=== PATIENT | female | born 1935 | race Caucasian/White ===

== ENCOUNTER 2022-07-05 23:13 | Inpatient (IN) | payer MEDICARE, BC, SELFPAY ==
[2022-07-05] VITALS (8 sets, daily range): BP systolic 148–158; BP diastolic 78–81; PULSE 72–75; RESP 13–22; TEMP 36.6; O2SAT 94–100
--- NOTE | ~2022-07-05 | XR_ITS ---
EXAMINATION: XR chest 1V portable DATE: 07/06/2022 00:04 INDICATION: Fall. TECHNIQUE: A single frontal view of the chest was obtained on 2 radiographs. COMPARISON: Chest 2 views 06/22/2015 FINDINGS: There are mild airspace opacities in right mid and lower lung zones. No pleural effusion or pneumothorax. The heart size is normal. IMPRESSION: 1. Mild airspace opacities in right mid and lower lung zones, consistent with atelectasis/scarring ve rsus pneumonia. Reviewed, dictated and finalized at location A. IMPRESSION: 1. Mild airspace opacities in right mid and lower lung zones, consistent with a telectasis/scarring versus pneumonia.
--- NOTE | ~2022-07-05 | XR_ITS ---
EXAMINATION: XR surgery orthopedic DATE: 07/06/2022 14:18 INDICATION: Right hip intertrochanteric nailing TECHNIQUE: 4 fluoroscopic images of the right femur were obtained during procedure performed by Dr. Igor hernandez. Radiologist was not present for the imaging or procedure. The amount of fluoroscopy time used during this procedure was 1.3 minutes. COMPARISON: 07/17/2022 FINDINGS: Interval antegrade intramedullary dominique and interlocking femoral head neck screw fixation of a previous noted intratrochanteric fracture of the proximal right femur. No new fractures identified. Alignment appears near-anatomic on the provided lateral projection of the fracture. IMPRESSION: 1. Fluoroscopy utilized during open reduction and internal fixation of a comminuted intratrochanteric fracture of the proximal right femur. See procedure note for further detail. Reviewed, dictated and finalized at location A. IMPRESSION: 1. Fluoroscopy utilized during open reduction and internal fixation of a commin uted intratrochanteric fracture of the proximal right femur. See procedure note for further detail.
--- NOTE | ~2022-07-05 | XR_ITS ---
EXAMINATION: XR hip RT 2V w AP pelvis DATE: 07/06/2022 00:04 INDICATION: Pelvis injury. TECHNIQUE: An anteroposterior view of the pelvis on 2 radiographs and 2 views of right hip were obtai nikhil. COMPARISON: Radiographs 08/17/2015 FINDINGS: There is a total left hip arthroplasty in near-anatomic alignment. There is lumbar dextrosc oliosis and severe spondylosis. There is a fracture of lesser trochanter of proximal right femur. The re is severe right hip osteoarthritis. IMPRESSION: 1. Age indeterminant fracture of lesser trochanter of proximal right femur. 2. Severe right hip osteoarthritis. 3. Total left hip arthroplasty in near-anatomic alignment. Reviewed, dictated and finalized at location A.
--- NOTE | 2022-07-05 23:24 | ECG_ITS ---
Measurements Intervals [place] Rate: 70 P: 93 MD: 165 QRS: -37 QRSD: 90 T: 82 QT: 408 QTc: 443 Interpretive Statements SINUS RHYTHM LEFT AXIS DEVIATION BASELINE ARTIFACT- I, II, III, AVR, AVL BORDERLINE ECG NO PREVIOUS ECG AVAILABLE FOR COMPARISON Electronically Signed On 07-06-2022 7:00:37 CDT by Poli Bobby D.O.
[2022-07-05] MEDS: MORPHINE SULFATE (*CRX) 4 MG/ML INJ IV PUSH (23:30)
[2022-07-05 23:44] LABS: Basophils Percent Auto 0.2 % (0.2-1.2); Eosinophils Percent Auto 0.2 % (0-4.4); Hematocrit 33.5 % (37.0-47.0); Hemoglobin 10.7 g/dL (12.0-15.0); Immature Granulocyte Absolute 0.05 K/mm3 (0.00-0.031); Immature Granulocyte Percent A 0.4 % (0-0.5); Lymphocytes Absolute Auto 1.11 K/mm3 (0.9-3.2); Lymphocytes Percent Auto 9.1 % (18.3-44.2); Mean Corpuscular HGB Conc 31.9 g/dl (32-36); Mean Corpuscular Hemoglobin 29.2 pg (26-34); Mean Corpuscular Volume 91.5 fl (80-100); Mean Platelet Volume 9.2 fl (7.4-10.4); Monocytes Absolute Auto 0.6 K/mm3 (0.1-0.6); Monocytes Percent Auto 5.2 % (2.6-8.5); Neutrophils Absolute Auto 10.4 K/mm3 (1.3-6.7); Neutrophils Percent Auto 84.9 % (45.5-73.1); Platelet Count Result 276 k/mm3 (150-375); Red Blood Count 3.66 M/mm3 (4.2-5.4); Red Cell Distribution Width 13.7 % (11.5-14.5); White Blood Count 12.2 K/mm3 (4.5-10.0)
[2022-07-06] VITALS (34 sets, daily range): BP systolic 106–157; BP diastolic 47–91; PULSE 58–102; RESP 12–21; TEMP 36.1–37.3; O2SAT 93–100; BMI 18.0
[2022-07-06 00:03] LABS: Anion Gap 10 mmol/L (8-16); Blood Urea Nitrogen 17 mg/dL (7-17); Calcium 8.9 mg/dL (8.4-10.2); Carbon Dioxide 24 mmol/L (22-30); Chloride 105 mmol/L (98-107); Estimated CRCL calculation 31 ml/min; Estimated Glomerular Filt Rate 59; Glucose 117 mg/dL (65-110); Potassium 3.7 mmol/L (3.4-5.0); Sodium 139 mmol/L (137-145)
--- NOTE | 2022-07-06 00:09 | ED.LOWEXIN ---
HPI - Extremity Injury (Lower) General Chief Complaint: Extremity Injury, Lower Stated Complaint: fall, RLE PAIN Time Seen by Provider: 07/05/22 23:21 History of Present Illness HPI Narrative: Patient is an 86-year-old female who presents ER status post fall. Patient reports she got up from the couch answer phone call when she fell landing on right side. Sudden onset pain in the hip. Unable to stand up. Obvious deformity on exam. Denies numbness or tingling. Denies any additional injury. Patient does have some mild dementia that family reports undiagnosed. Related Data Home Medications Medication Instructions Recorded Confirmed No Home Medications 07/06/22 07/06/22 Allergies Allergy/AdvReac Type Severity Reaction Status Date / Time No Known Allergies Allergy Verified 07/05/22 23:20 Review of Systems Review of Systems: All systems reviewed & are unremarkable except as noted in HPI and below Constitutional: Constitutional: Denies chills and Denies fever(s) Respiratory: Respiratory: Denies cough and Denies dyspnea Gastrointestinal: Gastrointestinal: Denies abdominal pain, Denies nausea and Denies vomiting Musculoskeletal: Musculoskeletal: Denies back pain, Reports arthralgias and Denies joint swelling Neurologic: Denies syncope, Denies headache(s), Denies numbness and Denies weakness PMFSH Past Medical History Medical History (Updated 07/06/22 @ 02:50 by Zulema Padilla MD) Healthy female adult Surgical History Surgical History (Updated 07/06/22 @ 00:10 by Cornelio Hendrix MD) History of appendectomy History of left hip replacement Family History Family History (Updated 07/06/22 @ 03:02 by Ilsa Silvestre RN) Other Unknown family medical history Social History Social History (Updated 07/06/22 @ 00:11 by Cornelio Hendrix MD) Smoking status: Never smoker Alcohol intake: never Substance use: never Spiritual care concerns: No Exam Narrative: GENERAL: Well-appearing, well-nourished, and in no acute distress. HEAD: Normocephalic, atraumatic. EYES: PERRL and EOMI. ENT: Mucous membranes moist. CHEST: Clear to auscultation. No respiratory distress. EXTREMITIES: Right lower extremity with shortening and external rotation. Tender at the right hip. SKIN: Warm, dry, no rash. NEURO: Alert and oriented to self/place/situation. PSYCH: Normal mood and affect. Course Course Emergency Course: Orthopedic surgery consulted. Admit to hospitalist service. Urinary catheter ordered for comfort due to immobility and fracture. Patient will go to the OR today. Vital Signs Vital signs: Vital Signs Temperature 97.9 F 07/05/22 23:08 Pulse Rate 75 07/05/22 23:08 Respiratory Rate 13 07/05/22 23:08 Blood Pressure 158/78 H 07/05/22 23:08 Pulse Oximetry 97 07/05/22 23:08 Oxygen Delivery Room Air 07/05/22 23:08 Temperature 98.7 F 07/06/22 03:47 Pulse Rate 69 07/06/22 03:47 Respiratory Rate 17 07/06/22 03:47 Blood Pressure 116/77 07/06/22 03:47 Pulse Oximetry 99 07/06/22 03:47 Oxygen Delivery Room Air 07/06/22 02:30 MDM - Extremity Injury (Lower) Lab Data Result diagrams: 07/05/22 23:33 07/05/22 23:33 Labs: Lab Results 07/05/22 07/05/22 07/05/22 Range/Units 23:33 23:33 23:33 WBC 12.2 H (4.5-10.0) K/mm3 RBC 3.66 L (4.2-5.4) M/mm3 Hgb 10.7 L (12.0-15.0) g/dL Hct 33.5 L (37.0-47.0) % MCV 91.5 (80-100) fl MCH 29.2 (26-34) pg MCHC 31.9 L (32-36) g/dl RDW 13.7 (11.5-14.5) % Plt Count 276 (150-375) k/mm3 MPV 9.2 (7.4-10.4) fl Immature Gran % (Auto) 0.4 (0-0.5) % Neut % (Auto) 84.9 H (45.5-73.1) % Lymph % (Auto) 9.1 L (18.3-44.2) % [place] % (Auto) 5.2 (2.6-8.5) % Eos % (Auto) 0.2 (0-4.4) % Baso % (Auto) 0.2 (0.2-1.2) % Lymph # (Auto) 1.11 (0.9-3.2) K/mm3 [place] # (Auto) 0.6 (0.1-0.6) K/mm3 Eos # (Auto) 0.0
[2022-07-06 00:12] LABS: INR 1.1; Prothrombin Time 13.5 Seconds (11.1-14.7)
[2022-07-06 00:13] LABS: Partial Thromboplastin Time 27.9 SECONDS (22.3-36.8)
--- NOTE | 2022-07-06 00:52 | PM.IMHP ---
H&P: HPI History of Present Illness Date/Time: 07/06/22 00:52 Chief Complaint: Fall Narrative: This is an 86-year-old female with known significant past medical history. patient was brought to the emergency room after she had a fall at home while trying to reach her phone denies any loss of consciousness, it was unwitnessed fall, patient lay on the floor for approximately 2 hours until she was able to get help she was having pain upon trying to get up and bear weight on her right leg. she has been in his usual state of health up until this event. Patient states that only hurts when trying to move the leg. Patient has been admitted for further evaluation management and treatment. Preliminary workup was significant for x-ray of pelvis with right intertrochanteric fracture. Review of Systems Review of Systems: fall, pain on the right leg upon bearing weight on it or moving it Constitutional: Constitutional: Denies chills, Denies fever(s), Denies malaise and Denies weakness Eyes: Eyes: Denies change in vision ENT: Denies dysphagia, Denies vertigo, Denies dizziness, Denies odynophagia and Denies disequilibrium Cardiovascular: Cardiovascular: Denies chest pain, Denies syncope, Denies irregular heart rhythm, Denies lightheadedness and Denies palpitations Respiratory: Respiratory: Denies chest congestion, Denies cough, Denies excessive phlegm production, Denies pain on inspiration and Denies dyspnea Gastrointestinal: Gastrointestinal: Denies abdominal pain, Denies dyspepsia, Denies heartburn, Denies diarrhea, Denies nausea and Denies vomiting Genitourinary: Genitourinary: Denies dysuria Musculoskeletal: Musculoskeletal: Reports arthralgias Comments: right leg pain upon bearing weight and trying to move it Integumentary/Breasts: Skin/Breast: Denies rash Neurologic: Denies vertigo, Denies dizziness, Denies focal weakness and Denies Sensory deficit (Neuro) Psychiatric: Psychiatric: Reports no additional psychiatric complaints and Reports as per HPI Endocrine: Endocrine: Denies cold intolerance, Denies fatigue, Denies flushing, Denies heat intolerance, Denies polyphagia, Denies polydipsia and Denies palpitations Hematologic/Lymphatic: Hematologic/Lymphatic: Reports no additional hematologic/lymphatic complaints and Reports as per HPI Allergic/Immunologic: Allergic/Immunologic: Reports no additional allergic/immunologic complaints and Reports as per HPI PMFSH Past Medical History Medical History (Updated 07/06/22 @ 02:50 by Zulema Padilla MD) Healthy female adult Surgical History Surgical History (Updated 07/06/22 @ 00:10 by Cornelio Hendrix MD) History of appendectomy History of left hip replacement Social History Social History (Updated 07/06/22 @ 00:11 by Cornelio Hendrix MD) Smoking status: Never smoker Alcohol intake: never Substance use: never Spiritual care concerns: No Meds Home Medications and Allergies Home Medications Medication Instructions Recorded Confirmed Type No Home Medications 07/06/22 07/06/22 History Allergies Allergy/AdvReac Type Severity Reaction Status Date / Time No Known Allergies Allergy Verified 07/05/22 23:20 Vital Signs Vital Signs - 24 hr 07/05/22 23:08 Temperature 97.9 F Pulse Rate 75 Respiratory Rate 13 Blood Pressure 158/78 H Pulse Oximetry 97 Oxygen Delivery Room Air Exam Narrative: patient is laying in bed Const: General: comfortable, no acute distress, well developed, alert and awake Nutritional Appearance: thin Orientation/consciousness: patient oriented x3 Limitations: physical limitations HENMT: Head: normal to inspection, normocephalic and atraumatic Ears: hearing grossly normal bilaterally Face and sinus: normal facial exam Eyes: General: appearance normal, both eyes and all related structures Pupils: Equal, round and reactive pupils present EOM: EOMs intact bilaterally Neck: Neck: full ROM, no lymphadeno
--- NOTE | 2022-07-06 01:50 | PC.NURSE ---
DURING ADMISSION I ASKED PT ABOUT HOME MEDICATIONS SHE STATED SHE TAKES NO MEDICATIONS AT ALL.
--- NOTE | 2022-07-06 01:51 | ADMGEN ---
This patient, Leydi Corbin, was admitted to Medical Room 260-. Patient/family oriented to hospital policies and general routines including ID bracelet, bed and alarms, visiting hours, pain management, procedures, bathroom and other care routines, personal items, smoking policy, room service/diet, and visiting hours. Information on how to activate the Rapid Response Team has been discussed. Patient/Family are encouraged to report perceived risks to care and to ask questions if they do not understand what they are told or what they should do.
[2022-07-06 07:44] LABS: Hemoglobin 9.6 g/dL (12.0-15.0); Mean Corpuscular Hemoglobin 29.3 pg (26-34); Mean Corpuscular Volume 91.5 fl (80-100); Mean Platelet Volume 8.6 fl (7.4-10.4); Platelet Count Result 221 k/mm3 (150-375); Red Blood Count 3.28 M/mm3 (4.2-5.4); Red Cell Distribution Width 13.6 % (11.5-14.5); White Blood Count 9.6 K/mm3 (4.5-10.0)
--- NOTE | 2022-07-06 08:22 | PM.CNOR ---
Assessment and Plan Assessment and plan (1) Intertrochanteric fracture of right hip: Code(s): S72.141A - Displaced intertrochanteric fracture of right femur, initial encounter for closed fracture Status: Acute Assessment and Plan: This patient is an 86-year-old female who presented to the emergency room late last evening after falling at home. She lives by herself. Her daughter Connie lives in the area. She provided the most history. Patient is active in the community and goes to budd[employer] manages her house makes her meals but she has become very forgetful. She could not remember when she had her left hip replacement done. Infection could not remember where she had felt pain right hip when she presented unable to get up off floor after her fall. She does report that she has been having a lot of problems with balance for the last few years. She denies any history of pain in her right hip prior to her fall last night. On examination today she is 50.6 kg. She states she has lost a lot of weight since her 4 years ago. Her daughter tells me that she has been told that she should take calcium tablet daily but patient has stopped taking that on her own. She is pleasant and in no acute distress as long she is not moving she denies any pain. She complains of hip proximal thigh pain with slight movement of the right leg which is a little bit shortened and externally rotated. She denies any other areas of pain does not feel she has had any other injury. She had 2+ dorsalis pedis 1+ posterior tibial artery pulses and denied numbness or tingling in her toes she had no lower extremity edema wiggles her toes and ankle without difficulty on the right. x-rays of the right hip two views and AP pelvis were obtained in the emergency room which demonstrate a total hip replacement on the left and on the right there is an intertrochanteric hip fracture with varus displacement and a separate displaced lesser trochanter fragment. There is associated rather severe osteoarthritis in the right hip but again the patient was asymptomatic prior to her fall. Laboratory studies showed that her hemoglobin was only 10.7 at admission indicating that she has chronic moderate anemia. This morning her hemoglobin is already down to 9.6. Her white count this morning is normal at 9.5 and platelets [id number]. Her vitamin-D is low 25.7 we will supplement this as well as initiate calcium orally. Her creatinine is 0.9 GFR normal at 59. Because of her advanced age low body mass her creatinine clearance is only 31. Her past medical history has been uneventful. Her daughter tells me that this is her 2nd time in the hospital the 1st time with her hip replacement approximately [address] Cedeno. I have discussed with her that the patient may and likely will have significant delirium for several days after her fracture repair because of her advanced age and memory loss currently. I have discussed with Patient options of treatment which include repairing this fracture and treating it nonsurgically. I have explained that there is risk of mortality which actually is higher at all points in time with nonsurgical treatment then with surgical treatment because of the morbidity of prolonged bed rest and pain with non operative treatment. Patient would like to regain as much independence as possible. She would like to proceed with surgery and we have scheduled her surgery for 10 26 today. I spoke to her daughter Connie on the phone at length. Connie is patient's [id number]. I discussed risks of surgery with her in detail including the risk of infection blood clots nonunion and the possibility she may have ongoing symptoms associated with the arthritis that she has in her hip joint. I do not feel she would be a good candidate for head and neck resection type total hip arthroplasty which could be considered which would address the osteoarthriti
[2022-07-06 08:26] LABS: Vitamin D 25 Hydroxy 25.7 ng/mL
[2022-07-06 08:40] LABS: Appearance Urine Clear (Clear); Bilirubin Urine Negative (Negative); Blood Urine 2+ (Negative); Color Urine Yellow (Yellow); Glucose Urine UA Negative (Negative); Ketones Urine Negative (Negative); Leukocyte Esterase Ur Negative LEU/UL (Negative); Nitrate Urine Negative (Negative); Protein Urine Trace mg/dL (Negative); Specific Grav Ur 1.025 (1.001-1.035); Urobilinogen Urine 0.2 mg/dL (<2.0)
[2022-07-06 08:51] LABS: Mucus Urine Rare /lpf; RBC Urine >75 /hpf (0-2); Squamous Epithelial Cell Urine Rare /hpf (Few)
[2022-07-06 08:55] LABS: Add Urine Microscopic? YES
--- NOTE | 2022-07-06 09:15 | PC.NURSE ---
Report called to [facility] preop.
--- NOTE | 2022-07-06 09:46 | PM.IMPN ---
Progress Note: A&P Assessment and Plan (1) Fracture of hip: Code(s): S72.009A - Fracture of unspecified part of neck of unspecified femur, initial encounter for closed fracture Status: Acute Assessment and Plan: bed rest ortho consult plan for intramedullary nail today (2) Fall: Code(s): W19.XXXA - Unspecified fall, initial encounter Status: Acute Assessment and Plan: fall precautions Plan systolic murmur mild not prohibitive for surgery. May work this up as an outpatient basis Abnormal UA not indicative of infection. Likely traumatic Teresa placement Abnormal x-ray with mild airspace opacity in the right mid and lower lung zones. This is likely atelectasis she denies any pulmonary symptoms clinically. Add incentive spirometry Subjective Date/time seen: 07/06/22 09:46 Interval history: HPI:This is an 86-year-old female with No known significant past medical history. patient was brought to the emergency room after she had a fall at home while trying to reach her phone denies any loss of consciousness, it was unwitnessed fall, patient lay on the floor for approximately 2 hours until she was able to get help she was having pain upon trying to get up and bear weight on her right leg. she has been in his usual state of health up until this? event.? Patient states that only hurts when trying to move the leg.? Patient has been admitted for further evaluation management and treatment.? Preliminary workup was significant for x-ray of pelvis with right intertrochanteric fracture. Review of Systems Review of Systems: All systems reviewed & are unremarkable except as noted in HPI and below Exam Narrative: GENERAL: Well-appearing, thin built, and in no acute distress. HEAD: Normocephalic, atraumatic. EYES: PERRL and EOMI. ENT:? Mucous membranes moist. CHEST: Clear to auscultation.? No respiratory distress. CVS: S1-S2 mild systolic murmur heard at the precordium EXTREMITIES: Right lower extremity with shortening and external rotation.? distal neurovascular status intact SKIN: Warm, dry, no rash. NEURO:? Alert and oriented to time place and person no focal neuro deficits PSYCH: Normal mood and affect. Objective Data Vital Signs Vital Signs: Vital Signs - 24 hr 07/05/22 23:08 07/05/22 23:18 07/05/22 23:19 Temperature 97.9 F Pulse Rate 75 74 74 Respiratory Rate 13 14 17 Blood Pressure 158/78 H 158/78 H Pulse Oximetry 97 97 100 Oxygen Delivery Room Air 07/05/22 23:23 07/05/22 23:30 07/05/22 23:31 Temperature Pulse Rate 74 74 72 Respiratory Rate 14 22 H 18 Blood Pressure 154/81 H Pulse Oximetry 98 Oxygen Delivery 07/05/22 23:45 07/05/22 23:46 07/06/22 00:00 Temperature Pulse Rate 74 75 69 Respiratory Rate 16 18 15 Blood Pressure 148/78 H Pulse Oximetry 95 94 95 Oxygen Delivery 07/06/22 00:01 07/06/22 00:15 07/06/22 00:16 Temperature Pulse Rate 69 72 72 Respiratory Rate 13 18 19 Blood Pressure 154/63 H 157/65 H Pulse Oximetry 94 94 93 Oxygen Delivery 07/06/22 00:30 07/06/22 00:31 07/06/22 00:45 Temperature Pulse Rate 67 70 73 Respiratory Rate 17 21 H 15 Blood Pressure 139/56 L Pulse Oximetry 97 Oxygen Delivery 07/06/22 00:46 07/06/22 01:00 07/06/22 01:01 Temperature Pulse Rate 73 70 68 Respiratory Rate 15 17 16 Blood Pressure 148/70 H 137/66 Pulse Oximetry 94 95 95 Oxygen Delivery 07/06/22 01:15 07/06/22 01:16 07/06/22 01:30 Temperature Pulse Rate 68 70 71 Respiratory Rate 18 15 18 Blood Pressure 127/68 Pulse Oximetry 93 94 94 Oxygen Delivery 07/06/22 01:31 07/06/22 01:45 07/06/22 02:30 Temperature 98.2 F Pulse Rate 70 76 Respiratory Rate 21 H 17 Blood Pressure 131/62 154/76 H Pulse Oximetry 94 96 Oxygen Delivery Room Air 07/06/22 03:47 07/06/22 09:04 Temperature 98.7 F Pulse Rate 69 Respiratory Rate 17 18 Blood Pressure 116/77 Pulse Oximetry 99 9
[2022-07-06] MEDS: LACTATED RINGERS 1,000 ML 30 ML IV CONT (11:43)
--- NOTE | 2022-07-06 12:00 | WPDANESEPPF ---
Anes - Initial Pre Proc Eval Procedure: Operation Date: 07/06/22 12:30 Proposed Procedures p Right Intertrochanteric Nail - John Hall MD Date/Time: 07/06/22 12:00 Surgeon: Jesus Frank MD Pre Op Diagnosis: hip fracture Patient Data Age: 86 Gender: F Height: 1.68 m Weight: 50.6 kg Last Vital Signs Temp 37.3 C 07/06/22 11:44 Pulse 80 07/06/22 11:44 Resp 16 07/06/22 11:44 BP 147/63 H 07/06/22 11:44 Pulse Ox 98 07/06/22 11:37 O2 Del Method Room Air 07/06/22 11:37 Allergies Allergy/AdvReac Type Severity Reaction Status Date / Time No Known Allergies Allergy Verified 07/05/22 23:20 Home Medications Medication Instructions Recorded Confirmed Type No Home Medications 07/06/22 07/06/22 History Laboratory Tests 07/05/22 07/05/22 07/05/22 23:33 23:33 23:33 WBC 12.2 K/mm3 H K/mm3 (4.5-10.0) RBC 3.66 M/mm3 L M/mm3 (4.2-5.4) Hgb 10.7 g/dL L g/dL (12.0-15.0) Hct 33.5 % L % (37.0-47.0) MCV 91.5 fl fl (80-100) MCH 29.2 pg pg (26-34) MCHC 31.9 g/dl L g/dl (32-36) RDW 13.7 % % (11.5-14.5) Plt Count 276 k/mm3 k/mm3 (150-375) MPV 9.2 fl fl (7.4-10.4) Immature Gran % (Auto) 0.4 % % (0-0.5) Neut % (Auto) 84.9 % H % (45.5-73.1) Lymph % (Auto) 9.1 % L % (18.3-44.2) [place] % (Auto) 5.2 % % (2.6-8.5) Eos % (Auto) 0.2 % % (0-4.4) Baso % (Auto) 0.2 % % (0.2-1.2) Lymph # (Auto) 1.11 K/mm3 K/mm3 (0.9-3.2) [place] # (Auto) 0.6 K/mm3 K/mm3 (0.1-0.6) Eos # (Auto) 0.0 K/mm3 K/mm3 (0-0.3) Baso # (Auto) 0.0 K/mm3 K/mm3 (0.0-0.1) Abs Immat Gran (auto) 0.05 K/mm3 H K/mm3 (0.00-0.031) Absolute Neuts (auto) 10.4 K/mm3 H K/mm3 (1.3-6.7) Absolute Nucleated RBC 0.0 K/mm3 K/mm3 (0.0-0.012) Nucleated RBC % 0.0 % % (0.0-0.2) PT 13.5 Seconds Seconds (11.1-14.7) INR 1.1 APTT 27.9 SECONDS SECONDS (22.3-36.8) Sodium 139 mmol/L mmol/L (137-145) Potassium 3.7 mmol/L mmol/L (3.4-5.0) Chloride 105 mmol/L mmol/L (98-107) Carbon Dioxide 24 mmol/L mmol/L (22-30) Anion Gap 10 mmol/L mmol/L (8-16) BUN 17 mg/dL mg/dL (7-17) Creatinine 0.90 mg/dL mg/dL (0.7-1.0) Estim Creat Clear Calc 31 ml/min ml/min Estimated GFR 59 (59 - ) Glucose 117 mg/dL H mg/dL (65-110) Calcium 8.9 mg/dL mg/dL (8.4-10.2) Vitamin D 25-Hydroxy Urine Color Urine Appearance Urine pH Ur Specific Ama Urine Protein Urine Glucose (UA) Urine Ketones Ur Blood (Man) Urine Nitrate Urine Bilirubin Urine Urobilinogen Leukocyte Esterase Rfl Urine RBC Urine WBC Ur Squamous Epith Cells Urine Mucus Blood Type Antibody Screen 07/06/22 07/06/22 07/06/22 00:29 07:34 07:34 WBC 9.6 K/mm3 K/mm3 (4.5-10.0) RBC 3.28 M/mm3 L M/mm3 (4.2-5.4) Hgb 9.6 g/dL L g/dL (12.0-15.0) Hct 30.0 % L % (37.0-47.0) MCV 91.5 fl fl (80-100) MCH 29.3 pg pg (26-34) MCHC 32.0 g/dl g/dl (32-36) RDW 13.6 % % (11.5-14.5) Plt Count 221 k/mm3 k/mm3 (150-375) MPV 8.6 fl fl (7.4-10.4) Immature Gran % (Auto) Neut % (Auto) Lymph % (Auto) [place] % (Auto) Eos % (Auto) Baso % (Auto) Lymph # (Auto) [place] # (Auto) Eos # (Auto) Baso # (Auto) Abs Immat Gran (auto) Absolut
[2022-07-06] MEDS: TRANEXAMIC ACID 1,000MG/ISO100 1,000 MG/100 ML BAG 200 MG IVPB (12:09)
--- NOTE | 2022-07-06 12:20 | WPDHPUPDATE1 ---
History and Physical Update Update Date/Time: 07/06/22 12:20 History and Physical has been reviewed, including an updated exam of the patient. There are NO changes in the patient's condition. Risks, benefits, and alternatives have been discussed and questions answered. Patient agrees to proceed with procedure.
[2022-07-06] MEDS: ceFAZolin 2 GM/D5W 50 ML 2 GM/50 ML BAG IVPB (12:46)
[2022-07-06] MEDS: ceFAZolin SODIUM 1 GM VIAL (13:44)
--- NOTE | 2022-07-06 15:09 | W.PM.PROC2 ---
Procedure Note - Detailed Date of Procedure 07/06/22 Pre-op Diagnosis hip fracture Right intertrochanteric hip fracture 3 part Post-op Diagnosis Same Procedure Performed Open reduction internal fixation right intertrochanteric hip fracture with Arthrex extended trochanteric nail device Surgeon John Hall MD [employer] [place] Description of Procedure Patient was brought to the operating room and general anesthesia was administered. The right hip was scrubbed with the chlorhexidine cloth Phuc prep. She was transferred to the fracture table padded right foot placed in the boot the left hip carefully flexed and abducted out of the way respecting the fact that she has a hip replacement there. Longitudinal traction was applied until the varus deformity was corrected and this gave us anatomic reduction on the AP and lateral views. A separate lesser trochanter fragment remained displaced mildly. The osteoarthritis of the hip joint was noted. The right thigh and hip were prepped with DuraPrep covered with Ioban. She received 2 g of Ancef weight based vancomycin preoperatively and 1 g tranexamic acid. A 1/2 inch longitudinal incision was made 3 in proximal to the greater trochanter. A 1 in incision was made on the fascia thony and a guide dominique was inserted in the tip of the greater trochanter position confirmed on AP and lateral views and tip of the greater trochanter entered with the starter Reamer long guide dominique inserted and we reamed up to the 13 Reamer which was far too small in the center of the intramedullary canal and it was clear that the 12.5 dominique would be appropriate for her as she had a very large intramedullary canal. We reamed to 14.5 mm in the canal and then finally used the 15 mm starter Reamer greater trochanter. We chose the 33 cm 130 degree right ES trochanteric nail 12.5 mm dominique diameter and this was inserted under manual pressure to the appropriate depth. A guide pin was inserted into the center of the femoral head on lateral view slightly below center on the AP view. A another guidewire was placed in the anti rotation pin hole. The lag screw tract was drilled we inserted a 110 mm lag screw which was the ideal length and we locked the lag screw to the dominique and removed the internal pin to allow the fracture to compress. We then placed 90 mm screw superiorly and when this was 10 mm from fully seated I could see it would be too long so we removed it and placed an 80 mm screw as a anti rotation screw. Her bone quality was very good and the cortical thickness in the lateral aspect of the proximal femur was nice and thick and with perfect reduction achieved I felt that it would be best to not use the distal interlocking screw just in case she needed conversion to total hip replacement some day given her osteoarthritis present. The wounds were irrigated with antibiotic solution. The fascia in the proximal incision closed with running 1. Vicryl the small split in the fascia and the distal incision closed with 0 Vicryl on the you needle skin closed with 2 subcutaneous Vicryl and glue EBL is 150 cc. There were no complications and she was transferred postop recovery room in good condition. Implants Arthrex Estimated Blood Loss -150.0 Urine Output -50.0 Complications No immediate complications Disposition PACU
--- NOTE | 2022-07-06 16:10 | PC.NURSE ---
Returned from OR via bed.
[2022-07-06] MEDS: SODIUM CHLORIDE 0.9% IV 1,000 ML 125 ML IV CONT (16:49)
[2022-07-06] MEDS: oxyCODONE HCL (*CRX) 2.5 MG TAB IR PO ×2 (16:49→21:40)
[2022-07-07] VITALS (11 sets, daily range): BP systolic 113–147; BP diastolic 54–89; PULSE 66–101; RESP 16–20; TEMP 36.1–36.7; O2SAT 92–100
[2022-07-07] MEDS: oxyCODONE HCL (*CRX) 2.5 MG TAB IR PO ×2 (04:01→09:47)
[2022-07-07 05:51] LABS: Basophils Percent Auto 0.1 % (0.2-1.2); Hematocrit 24.1 % (37.0-47.0); Hemoglobin 7.8 g/dL (12.0-15.0); Immature Granulocyte Absolute 0.04 K/mm3 (0.00-0.031); Immature Granulocyte Percent A 0.3 % (0-0.5); Lymphocytes Absolute Auto 0.74 K/mm3 (0.9-3.2); Lymphocytes Percent Auto 6.4 % (18.3-44.2); Mean Corpuscular HGB Conc 32.4 g/dl (32-36); Mean Corpuscular Hemoglobin 29.4 pg (26-34); Mean Corpuscular Volume 90.9 fl (80-100); Mean Platelet Volume 9.1 fl (7.4-10.4); Monocytes Percent Auto 8.3 % (2.6-8.5); Neutrophils Absolute Auto 9.7 K/mm3 (1.3-6.7); Neutrophils Percent Auto 84.9 % (45.5-73.1); Platelet Count Result 192 k/mm3 (150-375); Red Blood Count 2.65 M/mm3 (4.2-5.4); Red Cell Distribution Width 13.8 % (11.5-14.5); White Blood Count 11.5 K/mm3 (4.5-10.0)
[2022-07-07 06:00] LABS: Alanine Aminotransferase 14 U/L (6-35); Albumin Level 2.8 g/dL (3.5-5.1); Alkaline Phosphatase 39 U/L (38-126); Anion Gap 9 mmol/L (8-16); Aspartate Amino Transferase 20 U/L (14-36); Bilirubin,Total 0.5 mg/dL (0.2-1.3); Blood Urea Nitrogen 17 mg/dL (7-17); Calcium 7.5 mg/dL (8.4-10.2); Carbon Dioxide 23 mmol/L (22-30); Chloride 103 mmol/L (98-107); Estimated CRCL calculation 35 ml/min; Estimated Glomerular Filt Rate > 60; Glucose 171 mg/dL (65-110); Potassium 4.8 mmol/L (3.4-5.0); Sodium 135 mmol/L (137-145)
[2022-07-07] MEDS: polyethylene glycoL 3350 17 GM POWD.PACK PO (08:16)
[2022-07-07] MEDS: ENOXAPARIN 40 MG/0.4 ML SYRINGE SUB-Q (08:16)
[2022-07-07] MEDS: SENNA/DOCUSATE SODIUM TABLET 2 TAB PO ×2 (08:16→17:58)
--- NOTE | 2022-07-07 08:22 | PM.PNORT ---
Progress Note: A&P Assessment and Plan (1) Intertrochanteric fracture of right hip: Code(s): S72.141A - Displaced intertrochanteric fracture of right femur, initial encounter for closed fracture Status: Acute Assessment and Plan: patient is now postoperative day 1 after internal fixation of right intertrochanteric hip fracture. She has no recollection of yesterday does not remember me. Her daughter was with her and within about an hour of coming up to the room she became much more lucid and has been communicating appropriately. Today she does know the year 2019. She did not know the day of the name the president. She is sitting up and speaks very well and fluidly just like she did before surgery but has clearly some confusion. She wanted to look at her incisions on the side of her hip and instead looked at the blue bed mattress and commented that her hip looked blue. Her incision looks fine she is dry white sponge dressings with no bleeding. She has no swelling in the thigh. She wiggles her toes without difficulty. She has been up already with physical therapy. She complained of lightheadedness so they put her back into bed. She tolerated initially but felt she had lightheadedness due to the fact that she has not eaten since yesterday. She did actually eat some last night and this morning she is eating a good breakfast and tolerating this. I have left instructions for physical therapy nursing to call me if she complains of lightheadedness with physical therapy this afternoon and we will transfuse 1 unit of packed red blood cells. Her hemoglobin today was 7.8. Preoperatively it was 9.6 so she had a significant preoperative anemia of uncertain etiology. She now has superimposed acute blood loss anemia. I discussed that if we do not give patient a unit of blood today there is still significant chance she will need a unit of blood tomorrow but we will follow her symptoms and vital signs. My recommendation would be that if her hemoglobin drops below 7.5 even if not particularly symptomatic that we would transfuse 1 unit applied packed red blood cells because of her low body mass and age. She denies any pain in the right hip at this time she is quite comfortable. Impression patient is stable postoperatively. Acute blood-loss anemia may require transfusion if symptomatic or hemoglobin drops below 7.5. Subjective Subjective Date/Time Seen: 07/07/22 08:22 Objective Data Vital Signs Vital Signs: Vital Signs - 24 hr 07/06/22 09:04 07/06/22 10:38 07/06/22 11:37 Temperature 36.7 C 37.3 C Pulse Rate 78 80 Respiratory Rate 18 14 16 Blood Pressure 148/64 H 147/63 H Pulse Oximetry 99 99 98 Oxygen Delivery Room Air Room Air Oxygen Flow Rate 07/06/22 11:44 07/06/22 14:36 07/06/22 14:50 Temperature 37.3 C 36.7 C Pulse Rate 80 59 L 58 L Respiratory Rate 16 12 12 Blood Pressure 147/63 H 116/47 L 115/50 L Pulse Oximetry 100 100 Oxygen Delivery Simple Face Mask Simple Face Mask Oxygen Flow Rate 10 10 07/06/22 15:05 07/06/22 15:18 07/06/22 15:20 Temperature Pulse Rate 65 63 Respiratory Rate 12 14 Blood Pressure 134/62 140/57 L Pulse Oximetry 100 99 Oxygen Delivery Simple Face Mask Room Air Room Air Oxygen Flow Rate 10 07/06/22 15:35 07/06/22 15:50 07/06/22 16:10 Temperature 36.1 C L Pulse Rate 66 67 69 Respiratory Rate 12 14 18 Blood Pressure 143/66 H 137/77 148/64 H Pulse Oximetry 95 96 97 Oxygen Delivery Room Air Room Air Oxygen Flow Rate 07/06/22 16:10 07/06/22 16:40 07/06/22 16:25 Temperature 36.3 C L Pulse Rate 67 Respiratory Rate 18 14 Blood Pressure 132/64 Pulse Oximetry 97 97 96 Oxygen Delivery Room Air Room Air Oxygen Flow Rate 07/06/22 16:55 07/06/22 18:00 07/06/22 19:50 Temperature 36.3 C L 36.3 C L 36.4 C Pulse Rate 69 67 76 Respiratory Rate 16 16 17 Blood Pressure 150/65 H 130/63 106/50 L Pulse Oximetry 97 98 98 Oxygen Delivery
--- NOTE | 2022-07-07 10:13 | WPDANESPN ---
Anes - Prog Note Post-Op Date/Time: 07/07/22 10:13 Vital Signs: Last Vital Signs Temp 36.3 C L 07/07/22 09:44 Pulse 70 07/07/22 09:44 Resp 16 07/07/22 09:44 BP 113/54 L 07/07/22 09:44 Pulse Ox 98 07/07/22 09:44 O2 Del Method Room Air 07/07/22 08:00 O2 Flow Rate 10 07/06/22 15:05 Pain Score (VAS): 0 I/O: Intake & Output 07/06/22 07/07/22 07/07/22 23:59 07:59 15:59 Intake Total 565 630 Output Total 100 900 Balance 465 -270 Laboratory Tests 07/07/22 05:30 07/07/22 05:30 07/07/22 07/07/22 05:30 05:30 WBC 11.5 H RBC 2.65 L Hgb 7.8 L Hct 24.1 L MCV 90.9 MCH 29.4 MCHC 32.4 RDW 13.8 Plt Count 192 MPV 9.1 Immature Gran % (Auto) 0.3 Neut % (Auto) 84.9 H Lymph % (Auto) 6.4 L Dewitt % (Auto) 8.3 Eos % (Auto) 0.0 Baso % (Auto) 0.1 L Lymph # (Auto) 0.74 L Dewitt # (Auto) 1.0 H Eos # (Auto) 0.0 Baso # (Auto) 0.0 Abs Immat Gran (auto) 0.04 H Absolute Neuts (auto) 9.7 H Absolute Nucleated RBC 0.0 Nucleated RBC % 0.0 Sodium 135 L Potassium 4.8 Chloride 103 Carbon Dioxide 23 Anion Gap 9 BUN 17 Creatinine 0.80 Estim Creat Clear Calc 35 Estimated GFR > 60 Glucose 171 H Calcium 7.5 L Magnesium 2.0 Total Bilirubin 0.5 AST 20 ALT 14 Alkaline Phosphatase 39 Total Protein 6.0 L Albumin 2.8 L Patient Feedback: Patient satisfied with anesthetic care.
--- NOTE | 2022-07-07 11:00 | PC.NURSE ---
spoke with pharmacy and asked them to send me patient's Drisdol. will give when received
[2022-07-07] MEDS: ERGOCALCIFEROL 50,000 UNIT CAPSULE 50000 UNITS PO (11:44)
--- NOTE | 2022-07-07 14:32 | PM.IMPN ---
Progress Note: A&P Assessment and Plan (1) Fracture of hip: Code(s): S72.009A - Fracture of unspecified part of neck of unspecified femur, initial encounter for closed fracture Status: Acute Assessment and Plan: ortho consulted Status post ORIF nailing 07/06/2022 (2) Fall: Code(s): W19.XXXA - Unspecified fall, initial encounter Status: Acute Assessment and Plan: fall precautions Plan # systolic murmur mild not prohibitive for surgery. May work this up as an outpatient basis #Abnormal UA not indicative of infection. Likely traumatic Teresa placement #Abnormal x-ray with mild airspace opacity in the right mid and lower lung zones. This is likely atelectasis she denies any pulmonary symptoms clinically. Add incentive spirometry # delirium: Lorazepam p.r.n. for agitation. Add Seroquel at bedtime constant reorientation maintain day night cycle # DVT prophylaxis Lovenox # acute blood loss postoperative anemia transfuse if less than 7 continue to monitor Time Spent With Patient Time: DVT prophylaxis Lovenox Subjective Date/time seen: 07/07/22 14:32 Interval history: HPI:This is an 86-year-old female with No known significant past medical history. patient was brought to the emergency room after she had a fall at home while trying to reach her phone denies any loss of consciousness, it was unwitnessed fall, patient lay on the floor for approximately 2 hours until she was able to get help she was having pain upon trying to get up and bear weight on her right leg. she has been in his usual state of health up until this? event.? Patient states that only hurts when trying to move the leg.? Patient has been admitted for further evaluation management and treatment.? Preliminary workup was significant for x-ray of pelvis with right intertrochanteric fracture. 07/07/2022: Overnight patient Confused. Hallucinating. Unclear whether she slept okay of not. Daughter at bedside. Working with therapy. Review of Systems Review of Systems: All systems reviewed & are unremarkable except as noted in HPI and below Exam Narrative: GENERAL: Well-appearing, thin built, and in no acute distress. HEAD: Normocephalic, atraumatic. EYES: PERRL and EOMI. ENT:? Mucous membranes moist. CHEST: Clear to auscultation.? No respiratory distress. CVS: S1-S2 mild systolic murmur heard at the precordium EXTREMITIES: Right lower extremity with shortening and external rotation.? distal neurovascular status intact SKIN: Warm, dry, no rash. NEURO:? Alert But confused oriented to self not to time and place, no focal neuro deficits PSYCH: anxious looking Objective Data Vital Signs Vital Signs: Vital Signs - 24 hr 07/06/22 14:36 07/06/22 14:50 07/06/22 15:05 Temperature 98.1 F Pulse Rate 59 L 58 L 65 Respiratory Rate 12 12 12 Blood Pressure 116/47 L 115/50 L 134/62 Pulse Oximetry 100 100 100 Oxygen Delivery Simple Face Mask Simple Face Mask Simple Face Mask Oxygen Flow Rate 10 10 10 07/06/22 15:18 07/06/22 15:20 07/06/22 15:35 Temperature Pulse Rate 63 66 Respiratory Rate 14 12 Blood Pressure 140/57 L 143/66 H Pulse Oximetry 99 95 Oxygen Delivery Room Air Room Air Room Air Oxygen Flow Rate 07/06/22 15:50 07/06/22 16:10 07/06/22 16:10 Temperature 96.9 F L Pulse Rate 67 69 Respiratory Rate 14 18 18 Blood Pressure 137/77 148/64 H Pulse Oximetry 96 97 97 Oxygen Delivery Room Air Room Air Oxygen Flow Rate 07/06/22 16:40 07/06/22 16:25 07/06/22 16:55 Temperature 97.3 F L 97.3 F L Pulse Rate 67 69 Respiratory Rate 14 16 Blood Pressure 132/64 150/65 H Pulse Oximetry 97 96 97 Oxygen Delivery Room Air Oxygen Flow Rate 07/06/22 18:00 07/06/22 19:50 07/06/22 20:00 Temperature 97.4 F L 97.6 F Pulse Rate 67 76 Respiratory Rate 16 17 Blood Pressure 130/63 106/50 L Pulse Oximetry 98 98 98 Oxygen Delivery Room Air Oxygen Flow Rate 07/06/22
[2022-07-07 17:37] LABS: Hematocrit 25.1 % (37.0-47.0); Hemoglobin 8.3 g/dL (12.0-15.0)
--- NOTE | 2022-07-07 17:56 | PC.NURSE ---
left message with pharmacy to send 1800 IV tylenol. Will give when received
[2022-07-07] MEDS: LORazepam INJ (*CRX) 2 MG/ML VIAL 0.5 MG IV PUSH (17:58)
[2022-07-07] MEDS: QUEtiapine FUMARATE 12.5 MG TABLET PO (21:07)
[2022-07-07] MEDS: MORPHINE SULFATE (*CRX) 2 MG/ML INJ IV PUSH (21:44)
[2022-07-08] VITALS (11 sets, daily range): BP systolic 113–137; BP diastolic 48–83; PULSE 68–110; RESP 16–20; TEMP 36.6–37; O2SAT 95–100
[2022-07-08] MEDS: MORPHINE SULFATE (*CRX) 2 MG/ML INJ IV PUSH (02:43)
[2022-07-08 06:18] LABS: Basophils Percent Auto 0.4 % (0.2-1.2); Eosinophils Absolute Auto 0.1 K/mm3 (0-0.3); Eosinophils Percent Auto 1.3 % (0-4.4); Hematocrit 24.8 % (37.0-47.0); Immature Granulocyte Absolute 0.03 K/mm3 (0.00-0.031); Immature Granulocyte Percent A 0.3 % (0-0.5); Lymphocytes Absolute Auto 1.13 K/mm3 (0.9-3.2); Lymphocytes Percent Auto 11.4 % (18.3-44.2); Mean Corpuscular HGB Conc 32.3 g/dl (32-36); Mean Corpuscular Hemoglobin 29.7 pg (26-34); Mean Corpuscular Volume 92.2 fl (80-100); Mean Platelet Volume 9.3 fl (7.4-10.4); Monocytes Absolute Auto 0.9 K/mm3 (0.1-0.6); Monocytes Percent Auto 9.2 % (2.6-8.5); Neutrophils Absolute Auto 7.7 K/mm3 (1.3-6.7); Neutrophils Percent Auto 77.4 % (45.5-73.1); Platelet Count Result 203 k/mm3 (150-375); Red Blood Count 2.69 M/mm3 (4.2-5.4); White Blood Count 9.9 K/mm3 (4.5-10.0)
[2022-07-08 06:25] LABS: Alanine Aminotransferase 12 U/L (6-35); Albumin Level 2.7 g/dL (3.5-5.1); Alkaline Phosphatase 47 U/L (38-126); Anion Gap 3 mmol/L (8-16); Aspartate Amino Transferase 26 U/L (14-36); Bilirubin,Total 0.6 mg/dL (0.2-1.3); Blood Urea Nitrogen 18 mg/dL (7-17); Carbon Dioxide 25 mmol/L (22-30); Chloride 104 mmol/L (98-107); Estimated CRCL calculation 40 ml/min; Estimated Glomerular Filt Rate > 60; Glucose 90 mg/dL (65-110); Magnesium 2.1 mg/dL (1.6-2.3); Potassium 4.4 mmol/L (3.4-5.0); Sodium 132 mmol/L (137-145)
[2022-07-08] MEDS: polyethylene glycoL 3350 17 GM POWD.PACK PO (08:04)
[2022-07-08] MEDS: ENOXAPARIN 40 MG/0.4 ML SYRINGE SUB-Q (08:04)
[2022-07-08] MEDS: SENNA/DOCUSATE SODIUM TABLET 2 TAB PO ×2 (08:04→16:08)
[2022-07-08] MEDS: oxyCODONE HCL (*CRX) 2.5 MG TAB IR PO ×3 (08:15→21:53)
--- NOTE | 2022-07-08 14:24 | PM.PNORT ---
Progress Note: A&P Assessment and Plan (1) Intertrochanteric fracture of right hip: Code(s): S72.141A - Displaced intertrochanteric fracture of right femur, initial encounter for closed fracture Status: Acute Assessment and Plan: Patient is postoperative day 2. After trochanteric nail fixation of 3 part right intertrochanteric hip fracture. Today she is the same as yesterday when I talked to her. She is pleasantly confused. She did not know the of the week or the president knows the year. She does make inappropriate comments indicating that she does have some delirium and this is unchanged from yesterday. She is speaking clearly and quite alert. She tolerated getting up to the chair and the staff notes that she follows direction better today. However she does have a fair amount of pain and complained of pain with movement today. I have talked to her daughter about reinstating the scheduled low-dose oxycodone which I think will make her more comfortable. It may exacerbate her confusion a little bit but it is most important that she is not in pain so she can tolerate therapy without suffering unduly. She has no drainage on the dressings today she wiggles her toes no swelling in the thigh. Her hemoglobin is stable at 8. Yesterday it was 7.8 which represents no significant change. Will check again tomorrow. The hemoglobin normally drives down for 3 or 4 days after surgery. Her vital signs look fine. She did have an elevated heart rate at 110 at 1 point I suspect with transferring but it has been in the 70s and 80s the rest that time with stable blood pressure. Subjective Subjective Date/Time Seen: 07/08/22 14:24 Objective Data Vital Signs Vital Signs: Vital Signs - 24 hr 07/07/22 15:32 07/07/22 16:00 07/07/22 21:20 Temperature 36.7 C 36.4 C Pulse Rate 85 78 74 Respiratory Rate 20 20 Blood Pressure 147/68 H 139/77 Pulse Oximetry 100 97 Oxygen Delivery 07/07/22 21:30 07/07/22 20:00 07/07/22 23:46 Temperature 36.5 C Pulse Rate 66 71 Respiratory Rate 16 Blood Pressure 115/60 Pulse Oximetry 92 Oxygen Delivery Room Air 07/08/22 00:00 07/08/22 04:00 07/08/22 07:00 Temperature 36.7 C Pulse Rate 70 68 78 Respiratory Rate 16 Blood Pressure 134/83 Pulse Oximetry 97 Oxygen Delivery 07/08/22 08:00 07/08/22 11:30 07/08/22 08:00 Temperature 36.7 C Pulse Rate 110 H 70 Respiratory Rate 18 Blood Pressure 127/56 L Pulse Oximetry 97 Oxygen Delivery Room Air 07/08/22 12:04 Temperature Pulse Rate 75 Respiratory Rate Blood Pressure Pulse Oximetry Oxygen Delivery Intake/Output Intake/Output: Intake & Output 07/05/22 07/06/22 07/07/22 07/08/22 23:59 23:59 23:59 23:59 Intake Total 945 1200 385 Output Total 350 1250 Balance 595 -50 385 Meds/Results Medications: Active Medications Generic Name Dose Route Start Last Admin Trade Name Freq PRN Reason Stop Dose Admin Enoxaparin Sodium 40 mg 07/07/22 09:00 07/08/22 08:04 Enoxaparin 40 Mg/0.4 Ml Syringe SUB-Q 40 mg DAILY DOLLY Administration Ergocalciferol 50,000 unit 07/07/22 10:20 07/07/22 11:44 Ergocalciferol 50,000 Unit Capsule PO 50,000 unit WEEKLY DOLLY Administration Lorazepam 0.5 mg 07/07/22 16:23 07/07/22 17:58 Lorazepam Inj (*Crx) 2 Mg/Ml Vial IV PUSH 0.5 mg Q6H PRN Administration Anxiety Morphine Sulfate 2 mg 07/06/22 05:53 07/08/22 02:43 Morphine Sulfate (*Crx) 2 Mg/Ml Inj IV PUSH 2 mg Q1H PRN Administration Pain Rated 7-10 Naloxone HCl 0.1 mg 07/06/22 15:59 Naloxone Hcl 0.4 Mg/Ml Vial IV PUSH Q2M PRN Opiate Reversal Ondansetron HCl 4 mg 07/06/22 00:37 Ondansetron Inj 4 Mg/2 Ml Vial IV PUSH Q4H PRN Nausea Oxycodone HCl 2.5 mg 07/06/22 15:59 07/08/22 08:15 Oxycodone Hcl (*Crx) 2.5 Mg Tab Ir PO 2.5 mg Q4H PRN Administration Pain Rated 7-10 Oxycodone HCl 2.5 mg
--- NOTE | 2022-07-08 15:17 | PM.IMPN ---
Progress Note: A&P Assessment and Plan (1) Fracture of hip: Code(s): S72.009A - Fracture of unspecified part of neck of unspecified femur, initial encounter for closed fracture Status: Acute Assessment and Plan: ortho consulted Status post ORIF nailing 07/06/2022 (2) Fall: Code(s): W19.XXXA - Unspecified fall, initial encounter Status: Acute Assessment and Plan: fall precautions Plan # systolic murmur mild not prohibitive for surgery. May work this up as an outpatient basis #Abnormal UA not indicative of infection. Likely traumatic Teresa placement #Abnormal x-ray with mild airspace opacity in the right mid and lower lung zones. This is likely atelectasis she denies any pulmonary symptoms clinically. Add incentive spirometry # delirium: Lorazepam p.r.n. for agitation. Add Seroquel at bedtime constant reorientation maintain day night cycle # DVT prophylaxis Lovenox # acute blood loss postoperative anemia transfuse if less than 7 continue to monitor. Relatively stable Subjective Date/time seen: 07/08/22 15:17 Interval history: HPI:This is an 86-year-old female with No known significant past medical history. patient was brought to the emergency room after she had a fall at home while trying to reach her phone denies any loss of consciousness, it was unwitnessed fall, patient lay on the floor for approximately 2 hours until she was able to get help she was having pain upon trying to get up and bear weight on her right leg. she has been in his usual state of health up until this? event.? Patient states that only hurts when trying to move the leg.? Patient has been admitted for further evaluation management and treatment.? Preliminary workup was significant for x-ray of pelvis with right intertrochanteric fracture. 07/07/2022: Overnight patient Confused. Hallucinating. Unclear whether she slept okay of not. Daughter at bedside. Working with therapy. 07/08/2022 overnight events noted. This confused but is still ongoing. Daughter at bedside. Labs reviewed discussed with the nursing staff she did not get Haldol yesterday. She receives Seroquel last night Review of Systems Review of Systems: All systems reviewed & are unremarkable except as noted in HPI and below Exam Narrative: GENERAL: Well-appearing, thin built, and in no acute distress. HEAD: Normocephalic, atraumatic. EYES: PERRL and EOMI. ENT:? Mucous membranes moist. CHEST: Clear to auscultation.? No respiratory distress. CVS: S1-S2 mild systolic murmur heard at the precordium EXTREMITIES: Right lower extremity with shortening and external rotation.? distal neurovascular status intact SKIN: Warm, dry, no rash. NEURO:? Alert But confused oriented to self and place but not to time, no focal neuro deficits PSYCH: anxious looking Objective Data Vital Signs Vital Signs: Vital Signs - 24 hr 07/07/22 15:32 07/07/22 16:00 07/07/22 21:20 Temperature 98.0 F 97.6 F Pulse Rate 85 78 74 Respiratory Rate 20 20 Blood Pressure 147/68 H 139/77 Pulse Oximetry 100 97 Oxygen Delivery 07/07/22 21:30 07/07/22 20:00 07/07/22 23:46 Temperature 97.7 F Pulse Rate 66 71 Respiratory Rate 16 Blood Pressure 115/60 Pulse Oximetry 92 Oxygen Delivery Room Air 07/08/22 00:00 07/08/22 04:00 07/08/22 07:00 Temperature 98.0 F Pulse Rate 70 68 78 Respiratory Rate 16 Blood Pressure 134/83 Pulse Oximetry 97 Oxygen Delivery 07/08/22 08:00 07/08/22 11:30 07/08/22 08:00 Temperature 98.0 F Pulse Rate 110 H 70 Respiratory Rate 18 Blood Pressure 127/56 L Pulse Oximetry 97 Oxygen Delivery Room Air 07/08/22 12:04 Temperature Pulse Rate 75 Respiratory Rate Blood Pressure Pulse Oximetry Oxygen Delivery Intake/Output Intake/Output: Intake & Output 07/05/22 07/06/22 07/07/22 07/08/22 23:59 23:59 23:59 23:59 Intake Total 945 1200 385 Output Total 350 1250 Ba
[2022-07-08] MEDS: QUEtiapine FUMARATE 12.5 MG TABLET PO (21:53)
[2022-07-09] VITALS (11 sets, daily range): BP systolic 110–150; BP diastolic 59–78; PULSE 64–128; RESP 16–18; TEMP 36.6–37; O2SAT 95–98
[2022-07-09] MEDS: oxyCODONE HCL (*CRX) 2.5 MG TAB IR PO ×4 (03:54→23:05)
[2022-07-09 05:17] LABS: Basophils Percent Auto 0.4 % (0.2-1.2); Eosinophils Absolute Auto 0.1 K/mm3 (0-0.3); Eosinophils Percent Auto 0.7 % (0-4.4); Hematocrit 23.8 % (37.0-47.0); Hemoglobin 7.7 g/dL (12.0-15.0); Immature Granulocyte Absolute 0.03 K/mm3 (0.00-0.031); Immature Granulocyte Percent A 0.4 % (0-0.5); Lymphocytes Absolute Auto 1.13 K/mm3 (0.9-3.2); Lymphocytes Percent Auto 13.7 % (18.3-44.2); Mean Corpuscular HGB Conc 32.4 g/dl (32-36); Mean Corpuscular Hemoglobin 29.7 pg (26-34); Mean Corpuscular Volume 91.9 fl (80-100); Monocytes Absolute Auto 0.9 K/mm3 (0.1-0.6); Monocytes Percent Auto 10.3 % (2.6-8.5); Neutrophils Absolute Auto 6.1 K/mm3 (1.3-6.7); Neutrophils Percent Auto 74.5 % (45.5-73.1); Platelet Count Result 210 k/mm3 (150-375); Red Blood Count 2.59 M/mm3 (4.2-5.4); White Blood Count 8.2 K/mm3 (4.5-10.0)
[2022-07-09 05:24] LABS: Alanine Aminotransferase 15 U/L (6-35); Albumin Level 2.7 g/dL (3.5-5.1); Alkaline Phosphatase 62 U/L (38-126); Anion Gap 4 mmol/L (8-16); Aspartate Amino Transferase 37 U/L (14-36); Bilirubin,Total 0.8 mg/dL (0.2-1.3); Blood Urea Nitrogen 19 mg/dL (7-17); Calcium 8.1 mg/dL (8.4-10.2); Carbon Dioxide 26 mmol/L (22-30); Chloride 102 mmol/L (98-107); Estimated CRCL calculation 40 ml/min; Estimated Glomerular Filt Rate > 60; Glucose 103 mg/dL (65-110); Magnesium 2.1 mg/dL (1.6-2.3); Potassium 4.2 mmol/L (3.4-5.0); Sodium 132 mmol/L (137-145)
[2022-07-09] MEDS: SENNA/DOCUSATE SODIUM TABLET 2 TAB PO ×2 (09:18→16:26)
[2022-07-09] MEDS: ENOXAPARIN 40 MG/0.4 ML SYRINGE SUB-Q (09:18)
[2022-07-09] MEDS: polyethylene glycoL 3350 17 GM POWD.PACK PO (09:19)
[2022-07-09] MEDS: ACETAMINOPHEN 500 MG TABLET 1000 MG PO (09:23)
--- NOTE | 2022-07-09 10:48 | PCNFU ---
Nutrition Follow-Up Complete: Underweight related to weight loss over the last 4 years as evidenced by family report. Goal: Adequate oral intake Patient is progressing towards goal. We will continue current goal. Pt current nutrition is Regular with compact BID. Last recorded weight is 50.6 kg-stable. Bowel Motility:+BM reported 07/09 Labs Reviewed:BUN 19, Na 132, Hct 23.8,Hgb 7.7 Meds Noted:Zofran,Senokot,Miralax, Lovenox. Skin: WNL Additional Notes: Patient seen today for nutrition follow up. Patient ate 50% of breakfast this morning. Diet supplements ordered of Ensure compact BID providing an additional 220 kcals and 9 gms protein. Agree with diet orders. Monitoring diet advancement, weight, plan of care, labs, intakes. Follow up in 5 days.
--- NOTE | 2022-07-09 12:02 | PM.IMPN ---
Progress Note: A&P Assessment and Plan (1) Fracture of hip: Code(s): S72.009A - Fracture of unspecified part of neck of unspecified femur, initial encounter for closed fracture Status: Acute Assessment and Plan: ortho consulted Status post ORIF nailing 07/06/2022 (2) Fall: Code(s): W19.XXXA - Unspecified fall, initial encounter Status: Acute Assessment and Plan: fall precautions Plan # systolic murmur mild not prohibitive for surgery. May work this up as an outpatient basis #Abnormal UA not indicative of infection. Likely traumatic Teresa placement #Abnormal x-ray with mild airspace opacity in the right mid and lower lung zones. This is likely atelectasis she denies any pulmonary symptoms clinically. Add incentive spirometry # delirium: Lorazepam p.r.n. for agitation. Add Seroquel at bedtime constant reorientation maintain day night cycle # DVT prophylaxis Lovenox # acute blood loss postoperative anemia transfuse if less than 7 continue to monitor. Relatively stable # disposition need rehabilitation. Family prefers [facility] Subjective Date/time seen: 07/09/22 12:02 Interval history: HPI:This is an 86-year-old female with No known significant past medical history. patient was brought to the emergency room after she had a fall at home while trying to reach her phone denies any loss of consciousness, it was unwitnessed fall, patient lay on the floor for approximately 2 hours until she was able to get help she was having pain upon trying to get up and bear weight on her right leg. she has been in his usual state of health up until this? event.? Patient states that only hurts when trying to move the leg.? Patient has been admitted for further evaluation management and treatment.? Preliminary workup was significant for x-ray of pelvis with right intertrochanteric fracture. 07/07/2022: Overnight patient Confused. Hallucinating. Unclear whether she slept okay of not. Daughter at bedside. Working with therapy. 07/08/2022 overnight events noted. This confused but is still ongoing. Daughter at bedside. Labs reviewed discussed with the nursing staff she did not get Haldol yesterday. She receives Seroquel last night 07/09/2022 no overnight events. Intermittently confused and still going. Much calmer and less agitated. Working with therapy Review of Systems Review of Systems: All systems reviewed & are unremarkable except as noted in HPI and below Exam Narrative: GENERAL: Well-appearing, thin built, and in no acute distress. HEAD: Normocephalic, atraumatic. EYES: PERRL and EOMI. ENT:? Mucous membranes moist. CHEST: Clear to auscultation.? No respiratory distress. CVS: S1-S2 mild systolic murmur heard at the precordium EXTREMITIES: Right lower extremity with shortening and external rotation.? distal neurovascular status intact SKIN: Warm, dry, no rash. NEURO:? Alert, calm, cooperative But confused oriented to self and place but not to time, no focal neuro deficits PSYCH: calm, cooperative Objective Data Vital Signs Vital Signs: Vital Signs - 24 hr 07/08/22 12:04 07/08/22 16:43 07/08/22 16:00 Temperature 98.6 F Pulse Rate 75 107 H 81 Respiratory Rate 18 Blood Pressure 113/63 Pulse Oximetry 97 Oxygen Delivery 07/08/22 19:08 07/08/22 23:16 07/08/22 20:00 Temperature 97.8 F 98.4 F Pulse Rate 91 84 104 H Respiratory Rate 17 20 Blood Pressure 137/53 L 117/48 L Pulse Oximetry 100 95 Oxygen Delivery 07/08/22 20:00 07/09/22 00:00 07/09/22 03:23 Temperature 98.6 F Pulse Rate 78 78 Respiratory Rate 18 Blood Pressure 112/78 Pulse Oximetry 96 Oxygen Delivery Room Air 07/09/22 04:00 07/09/22 08:00 07/09/22 10:03 Temperature 97.8 F Pulse Rate 73 128 H 94 Respiratory Rate 18 Blood Pressure 110/62 Pulse Oximetry 97 Oxygen Delivery 07/09/22 08:30 Temperature Pulse Rate Respiratory Rate Blood Pressur
[2022-07-09] MEDS: ACETAMINOPHEN 325 MG TABLET 650 MG PO ×3 (12:55→23:05)
--- NOTE | 2022-07-09 13:00 | PM.PNORT ---
Progress Note: A&P Assessment and Plan (1) Intertrochanteric fracture of right hip: Code(s): S72.141A - Displaced intertrochanteric fracture of right femur, initial encounter for closed fracture Status: Acute Assessment and Plan: Patient is postop day 3. After intertrochanteric hip fracture fixation right hip. She is completely comfortable this morning. She has twinge of pain during transfer but tolerates this well and she has been up in a chair and doing better with this. She is less confused today. She knew the day was Saturday today she does not recall the name of the president. She seems very calm and communicates effectively and is even making some choking comments. There is no significant swelling in the right leg. Her hemoglobin today is 7.7. This represents no significant change from 8 yesterday and 7 point 8 the day before. Her blood pressure is stable although little lower than on admission and her heart rate varies from the 70s to sometimes in the 110s. She does not seem to be symptomatic so I think we do not need transfusion at this point. We will check a CBC 1 more time tomorrow. Subjective Subjective Date/Time Seen: 07/09/22 13:00 Objective Data Vital Signs Vital Signs: Vital Signs - 24 hr 07/08/22 16:43 07/08/22 16:00 07/08/22 19:08 Temperature 37.0 C 36.6 C Pulse Rate 107 H 81 91 Respiratory Rate 18 17 Blood Pressure 113/63 137/53 L Pulse Oximetry 97 100 Oxygen Delivery 07/08/22 23:16 07/08/22 20:00 07/08/22 20:00 Temperature 36.9 C Pulse Rate 84 104 H Respiratory Rate 20 Blood Pressure 117/48 L Pulse Oximetry 95 Oxygen Delivery Room Air 07/09/22 00:00 07/09/22 03:23 07/09/22 04:00 Temperature 37.0 C Pulse Rate 78 78 73 Respiratory Rate 18 Blood Pressure 112/78 Pulse Oximetry 96 Oxygen Delivery 07/09/22 08:00 07/09/22 10:03 07/09/22 08:30 Temperature 36.6 C Pulse Rate 128 H 94 Respiratory Rate 18 Blood Pressure 110/62 Pulse Oximetry 97 Oxygen Delivery Room Air 07/09/22 12:00 Temperature Pulse Rate 78 Respiratory Rate Blood Pressure Pulse Oximetry Oxygen Delivery Intake/Output Intake/Output: Intake & Output 07/06/22 07/07/22 07/08/22 07/09/22 23:59 23:59 23:59 23:59 Intake Total 945 1200 1025 170 Output Total 350 1250 525 Balance 595 -50 500 170 Meds/Results Medications: Active Medications Generic Name Dose Route Start Last Admin Trade Name Freq PRN Reason Stop Dose Admin Acetaminophen 650 mg 07/09/22 12:00 07/09/22 12:55 Acetaminophen 325 Mg Tablet PO 650 mg Q6HR DOLLY Administration Enoxaparin Sodium 40 mg 07/07/22 09:00 07/09/22 09:18 Enoxaparin 40 Mg/0.4 Ml Syringe SUB-Q 40 mg DAILY DOLLY Administration Ergocalciferol 50,000 unit 07/07/22 10:20 07/07/22 11:44 Ergocalciferol 50,000 Unit Capsule PO 50,000 unit WEEKLY DOLLY Administration Lorazepam 0.5 mg 07/07/22 16:23 07/07/22 17:58 Lorazepam Inj (*Crx) 2 Mg/Ml Vial IV PUSH 0.5 mg Q6H PRN Administration Anxiety Naloxone HCl 0.1 mg 07/06/22 15:59 Naloxone Hcl 0.4 Mg/Ml Vial IV PUSH Q2M PRN Opiate Reversal Ondansetron HCl 4 mg 07/06/22 00:37 Ondansetron Inj 4 Mg/2 Ml Vial IV PUSH Q4H PRN Nausea Oxycodone HCl 2.5 mg 07/06/22 15:59 07/08/22 08:15 Oxycodone Hcl (*Crx) 2.5 Mg Tab Ir PO 2.5 mg Q4H PRN Administration Pain Rated 7-10 Oxycodone HCl 2.5 mg 07/08/22 16:00 07/09/22 10:48 Oxycodone Hcl (*Crx) 2.5 Mg Tab Ir PO 2.5 mg Q6H DOLLY Administration Polyethylene Glycol 17 gm 07/07/22 09:00 07/09/22 09:19 Polyethylene Glycol 3350 17 Gm Powd.Pack PO 17 gm QAM DOLLY Administration Quetiapine Fumarate 12.5 mg 07/07/22 21:00 07/08/22 21:53 Quetiapine Fumarate 12.5 Mg Tablet PO 12.5 mg HS DOLLY Administration Senna/Docusate Sodium 2 tab 07/06/22 17:00 07/09/22 09:18 Senna/Docusate Sodium Tablet PO 2 tab
[2022-07-09] MEDS: QUEtiapine FUMARATE 12.5 MG TABLET PO (20:59)
[2022-07-10] VITALS (12 sets, daily range): BP systolic 107–143; BP diastolic 50–74; PULSE 68–82; RESP 12–18; TEMP 36.1–37; O2SAT 74–100
[2022-07-10] MEDS: oxyCODONE HCL (*CRX) 2.5 MG TAB IR PO ×2 (05:08→09:28)
[2022-07-10] MEDS: ACETAMINOPHEN 325 MG TABLET 650 MG PO ×2 (05:08→11:29)
[2022-07-10 05:32] LABS: Basophils Percent Auto 0.4 % (0.2-1.2); Eosinophils Absolute Auto 0.2 K/mm3 (0-0.3); Eosinophils Percent Auto 3.6 % (0-4.4); Hematocrit 22.8 % (37.0-47.0); Hemoglobin 7.3 g/dL (12.0-15.0); Immature Granulocyte Absolute 0.03 K/mm3 (0.00-0.031); Immature Granulocyte Percent A 0.4 % (0-0.5); Lymphocytes Absolute Auto 0.91 K/mm3 (0.9-3.2); Lymphocytes Percent Auto 13.5 % (18.3-44.2); Mean Corpuscular Hemoglobin 29.6 pg (26-34); Mean Corpuscular Volume 92.3 fl (80-100); Mean Platelet Volume 8.9 fl (7.4-10.4); Monocytes Absolute Auto 0.7 K/mm3 (0.1-0.6); Monocytes Percent Auto 10.4 % (2.6-8.5); Neutrophils Absolute Auto 4.8 K/mm3 (1.3-6.7); Neutrophils Percent Auto 71.7 % (45.5-73.1); Platelet Count Result 237 k/mm3 (150-375); Red Blood Count 2.47 M/mm3 (4.2-5.4); White Blood Count 6.8 K/mm3 (4.5-10.0)
[2022-07-10 05:53] LABS: Alanine Aminotransferase 72 U/L (6-35); Albumin Level 2.8 g/dL (3.5-5.1); Alkaline Phosphatase 67 U/L (38-126); Anion Gap 9 mmol/L (8-16); Aspartate Amino Transferase 168 U/L (14-36); Bilirubin,Total 0.7 mg/dL (0.2-1.3); Blood Urea Nitrogen 20 mg/dL (7-17); Calcium 7.6 mg/dL (8.4-10.2); Carbon Dioxide 25 mmol/L (22-30); Chloride 99 mmol/L (98-107); Estimated CRCL calculation 35 ml/min; Estimated Glomerular Filt Rate > 60; Glucose 102 mg/dL (65-110); Magnesium 2.1 mg/dL (1.6-2.3); Potassium 4.2 mmol/L (3.4-5.0); Sodium 133 mmol/L (137-145)
[2022-07-10] MEDS: SODIUM CHLORIDE 0.9% IV 250 ML 30 ML IV CONT (08:21)
[2022-07-10] MEDS: SENNA/DOCUSATE SODIUM TABLET 2 TAB PO (08:22)
[2022-07-10] MEDS: ENOXAPARIN 40 MG/0.4 ML SYRINGE SUB-Q (08:22)
[2022-07-10 08:52] LABS: Glucose Point of Care 99 mg/dl (65-105)
[2022-07-10 11:52] LABS: Glucose Point of Care 90 mg/dl (65-105)
[2022-07-10 12:45] LABS: Hematocrit 31.5 % (37.0-47.0); Hemoglobin 10.5 g/dL (12.0-15.0)
--- NOTE | 2022-07-10 14:13 | PM.DS ---
DS: Admitting Diagnosis Discharge Date 07/10/2022 Admitting Diagnosis fall and hip fracture DS: Discharge Diagnosis Discharge Diagnosis (1) Fracture of hip: Code(s): S72.009A - Fracture of unspecified part of neck of unspecified femur, initial encounter for closed fracture Status: Acute (2) Fall: Code(s): W19.XXXA - Unspecified fall, initial encounter Status: Acute DS: Summary Hospital Course Hospital Course: # fall mechanical # right hip fracture status post open reduction and internal fixation with nails. # systolic murmur mild not prohibitive for surgery.? May? work this? up as an outpatient basis ?#Abnormal UA not indicative of infection.? Likely traumatic Teresa placement ?#Abnormal x-ray with mild airspace opacity in the right mid and lower lung zones.? This is likely atelectasis she denies any pulmonary symptoms clinically.? Add incentive spirometry. She remained off oxygen during the hospital stay # postoperative delirium:? Lorazepam p.r.n. for agitation.? Add Seroquel at bedtime constant reorientation maintain day night cycle. Continue to improve # DVT prophylaxis Lovenox will be on Lovenox for 6 weeks # acute blood loss postoperative anemia transfuse if less than 7 continue to monitor.? patient hemoglobin drifted down postoperatively up to 7.3 for which she received 1 unit packed red blood cell on 07/10/2022 she will be followed closely with weekly CBC # disposition need rehabilitation.? DC to rehab facility for further rehabilitation Time Spent with Patient Time attestation: Total time spent providing and/or coordinating discharge services: 45 minutes Exam Narrative: GENERAL: Well-appearing, thin built, and in no acute distress. HEAD: Normocephalic, atraumatic. EYES: PERRL and EOMI. ENT:? Mucous membranes moist. CHEST: Clear to auscultation.? No respiratory distress. CVS: S1-S2 mild systolic murmur heard at the precordium EXTREMITIES: Right lower extremity with? distal neurovascular status intact SKIN: Warm, dry, no rash. NEURO:? Alert, calm, cooperative But confused oriented to self and place but not to time, no focal neuro deficits PSYCH: calm, cooperative DS: Data Data Completed and Pending Labs on day of discharge: Labs from last 24 hours 07/10/22 07/10/22 07/10/22 12:33 11:42 08:37 WBC RBC Hgb 10.5 L D Hct 31.5 L MCV MCH MCHC RDW Plt Count MPV Immature Gran % (Auto) Neut % (Auto) Lymph % (Auto) [place] % (Auto) Eos % (Auto) Baso % (Auto) Lymph # (Auto) [place] # (Auto) Eos # (Auto) Baso # (Auto) Abs Immat Gran (auto) Absolute Neuts (auto) Absolute Nucleated RBC Nucleated RBC % Sodium Potassium Chloride Carbon Dioxide Anion Gap BUN Creatinine Estim Creat Clear Calc Estimated GFR Glucose POC Capillary Glucose 90 99 Calcium Magnesium Total Bilirubin AST ALT Alkaline Phosphatase Total Protein Albumin Blood Type Antibody Screen Crossmatch 07/10/22 07/10/22 07/10/22 06:50 05:18 05:18 WBC 6.8 RBC 2.47 L Hgb 7.3 L Hct 22.8 L MCV 92.3 MCH 29.6 MCHC 32.0 RDW 14.0 Plt Count 237 MPV 8.9 Immature Gran % (Auto) 0.4 Neut % (Auto) 71.7 Lymph % (Auto) 13.5 L [place] % (Auto) 10.4 H Eos % (Auto) 3.6 Baso % (Auto) 0.4 Lymph # (Auto) 0.91 [place] # (Auto) 0.7 H Eos # (Auto) 0.2 Baso # (Auto) 0.0 Abs Immat Gran (auto) 0.03 Absolute Neuts (auto) 4.8 Absolute Nucleated RBC 0.0 Nucleated RBC % 0.0 Sodium 133 L Potassium 4.2 Chloride 99 Carbon Dioxide 25 Anion Gap 9 BUN 20 H Creatinine 0.80 Estim Creat Clear Calc 35 Estimated GFR > 60 Glucose 102 POC Capillary Glucose Calcium 7.6 L Magnesium 2.1 Total Bilirubin 0.7 AST 168 H ALT 72 H Alkaline Phosphatase 67 Total Protein 6.0 L Alb
[2022-07-10 14:35] LABS: EDCOVIDSCREEN Negative (Negative)
== END 2022-07-10 16:25 | DRG 481 ==
LOC: ANHED 07-06 01:11 → ANH2MED 07-06 01:23
PROVIDERS: Orthopaedic Surgery; Physician Assistant Surgical; Admitting Provider Internal Medicine; Emergency Provider Emergency Medicine; PCP Internal Medicine; Visit Provider Internal Medicine
PROC: 0QS634Z Reposition Right Upper Femur with Internal Fixation Device, Percutaneous Approach (ICD-10-PCS; CPT 27245; principal; 2022-07-06 12:30)
DX: S72.141A Displaced intertrochanteric fracture of right femur, initial encounter for closed fracture (principal); D62 Acute posthemorrhagic anemia; W19.XXXA Unspecified fall, initial encounter; Z20.822 Contact with and (suspected) exposure to COVID-19; R41.0 Disorientation, unspecified; R01.1 Cardiac murmur, unspecified; Z96.642 Presence of left artificial hip joint; Z90.49 Acquired absence of other specified parts of digestive tract
CPT/HCPCS: 36415; 36430; 71045; 73502; 80048; 80053; 81001; 82306; 82948; 83735; 85014; 85018; 85025; 85027; 85610; 85730; 86850; 86900; 86901; 86920; 87426; 93005; 96374; 97110; 97116; 97161; 97165; 97530; 97535; 99199; 99285; A9270; C1713; C9803; G0378; J0131; J0690; J1100; J1650; J2060; J2270; J2405; J2704; J3010; J3370; J7030; J7050; J7120; P9016

== ENCOUNTER 2022-07-12 04:19 | Emergency (ER) | payer MEDICARE, BC, SELFPAY ==
--- NOTE | ~2022-07-12 | CT_ITS ---
EXAMINATION: CT cervical spine wo con DATE: 07/12/2022 07:40 INDICATION: Fall with posterior head and neck injury. TECHNIQUE: Computed tomography (CT) of the cervical spine was performed without intravenous contrast. Automated exposure control and iterative reconstruction technique were employed. The dose-length pro duct was 90.65 mGy-cm. COMPARISON: None FINDINGS: 25 degrees cervicothoracic levocurvature. 2 mm anterolisthesis C7 on T1 and 102 mm anterolisthesis C3 on C4. Vertebral body heights are normal. No fracture. There is anterior and posterior fusion at C3- C4. Severe disc height loss with degenerative endplate changes at C5-C6 and C6-C7. Moderate disc heig ht loss at C2-C3 and C4-C5. Mild right-sided predominant disc height loss at C7-T1. Bilateral multile clover severe cervical facet osteoarthritis and moderate to severe uncovertebral osteoarthritis. Posteri or endplate osteophytes/disc osteophyte complexes resulting in mild central canal stenosis at multipl e levels in the cervical spine. There is also multilevel mild bilateral neural foraminal stenosis. At herosclerotic calcifications at the bilateral carotid bulbs. Cervical soft tissues are unremarkable. Biapical pleural-parenchymal scarring, mild on the left and moderate severity with associated mild br onchiectasis on the right. IMPRESSION: 1. Cervicothoracic levoscoliosis with severe spondylosis. No acute osseous abnormality. Reviewed, dictated and finalized at location A. IMPRESSION: 1. Cervicothoracic levoscoliosis with severe spondylosis. No acute osseous abno rmality.
--- NOTE | ~2022-07-12 | CT_ITS ---
EXAMINATION: CT brain wo con DATE: 07/12/2022 07:40 INDICATION: Fall with posterior head injury TECHNIQUE: Computed tomography (CT) of the head was performed without intravenous contrast. Sagittal and coronal reconstructions were performed. The mA was adjusted according to patient size. Iterative reconstruction technique was employed. The dose-length product was 605.33 mGy-cm. COMPARISON: None FINDINGS: Right parietal scalp hematoma no fracture. No acute intracranial hemorrhage, acute infarction or abno rmal extra axial fluid collection. There is mild scattered white matter hypoattenuation consistent wi th chronic small vessel ischemic disease. Symmetric prominence of the sulci consistent with moderate age-appropriate diffuse cerebral volume loss. Ventricles are normal and symmetric. No mass/mass effec t. Changes of bilateral intraocular lens replacement. The orbits, paranasal sinuses and mastoid air c ells are normal. IMPRESSION: 1. Right parietal scalp hematoma. No fracture or acute intracranial process. 2. Age-related changes including moderate diffuse volume loss and mild scattered white matter hypoatt enuation consistent with chronic small vessel ischemic disease. Reviewed, dictated and finalized at location A. IMPRESSION: 1. Right parietal scalp hematoma. No fracture or acute intracranial process. 2. Age-related changes including moderate diffuse volume loss and mild scattere d white matter hypoattenuation consistent with chronic small vessel ischemic di sease.
--- NOTE | ~2022-07-12 | XR_ITS ---
EXAMINATION: XR hip RT min 3V w AP pelvis INDICATION: Pain after fall, recent right hip surgery TECHNIQUE: AP view the pelvis and two views of the right hip are obtained. COMPARISON: 07/05/2022 FINDINGS: There has been interval antegrade intramedullary dominique and interlocking intratrochanteric scr ew fixation of the right femur. The lesser trochanter continues to exist on a separate fracture frag ment. Alignment is near-anatomic. No new fracture is identified. The femoral head is well-seated in t he acetabulum. 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 The soft tissues are unremarkable. IMPRESSION: 1. Interval surgical change of the right hip without new acute osseous abnormality. Reviewed, dictated and finalized at location B. IMPRESSION: 1. Interval surgical change of the right hip without new acute osseous abnormal ity.
[2022-07-12 05:02] VITALS: BP 115/70; PULSE 72; RESP 16; TEMP 36.6; O2SAT 96
--- NOTE | 2022-07-12 05:36 | PC.NURSE ---
This patients daughter has been asked multiple times to leave and she refuses. This daughter states, You will have to find a couple people to take my mother to the bathroom the right way since she just had surgery. you will have to lift her . This RN stated to this daughter that we will not be able to lift the patient up. The daughter stated well i am needing you guys to do this because there are certain things her physical therapist says that you guys should know which way to lift my mom up so she can go to the bathroom. We told this daughter that we would do our best to help her the most we can but we cannot guarantee we know exactly the way the physical therapist wants her to lift and bear weight
[2022-07-12 07:15] VITALS: BP 111/59; PULSE 70; RESP 15; O2SAT 98
[2022-07-12 08:19] VITALS: BP 126/53; PULSE 68; RESP 16; O2SAT 98
--- NOTE | 2022-07-12 08:20 | ED.FALL ---
HPI - Fall General Chief Complaint: Fall Stated Complaint: ground level fall lost balance. hit head Time Seen by Provider: 07/12/22 07:39 Source: patient and EMS Mode of arrival: EMS Limitations: no limitations History of Present Illness HPI Narrative: 86 years old white female came to the emergency room from custodial complaining of getting of the toilet, could not wait for her programs assistant, lost her balance and fell complaining of occipital headache, denies other injuries. Patient is status post right hip dominique placement few days ago, got discharged from our hospital 2 days ago. Patient on anti coagulant medication. Patient denies loss of consciousness, fever, chills, nausea, vomiting, chest pain, back pain or other injuries Related Data Allergies Allergy/AdvReac Type Severity Reaction Status Date / Time No Known Allergies Allergy Verified 07/12/22 07:16 Review of Systems Review of Systems: All systems reviewed & are unremarkable except as noted in HPI and below PMFSH Past Medical History Medical History Anemia Surgical History Surgical History History of appendectomy History of left hip replacement Family History Family History Other Unknown family medical history Social History Social History Smoking status: Never smoker Alcohol intake: never Substance use: never Spiritual care concerns: No Exam Narrative: General appearance: Well-developed, well-nourished Skin: Normal color Head: Normocephalic, occipital hematoma Eyes: Clear conjunctiva ENT: Oropharynx normal, ears normal, nose normal Neck: Supple, nontender Chest and respiratory: Airway patent, no respiratory distress, no accessory muscle use Heart: Regular rate/rhythm Abdomen: Soft, nontender, no organomegaly, quiet bowel sounds Vascular: Normal peripheral pulses, normal capillary refill. Musculoskeletal: Limited range of motion of the right hip because of pain, no deformity, surgical scar is clean and dry Neurologic: Alert and oriented ?3, [employer] is normal as tested, no gross motor deficit Course Consultations Consultation #1: DR PARKER Date: 07/12/22 Time: 09:18 Vital Signs Vital signs: Vital Signs Temperature 36.6 C 07/12/22 05:02 Pulse Rate 72 07/12/22 05:02 Respiratory Rate 16 07/12/22 05:02 Blood Pressure 115/70 07/12/22 05:02 Pulse Oximetry 96 07/12/22 05:02 Temperature 36.6 C 07/12/22 05:02 Pulse Rate 68 07/12/22 08:19 Respiratory Rate 16 07/12/22 08:19 Blood Pressure 126/53 L 07/12/22 08:19 Pulse Oximetry 98 07/12/22 08:19 MDM - Fall Imaging Data Radiologist's impression: Impressions Head CT 07/12/22 08:00 IMPRESSION: 1. Right parietal scalp hematoma. No fracture or acute intracranial process. 2. Age-related changes including moderate diffuse volume loss and mild scattered white matter hypoattenuation consistent with chronic small vessel ischemic disease. Cervical Spine CT 07/12/22 08:05 IMPRESSION: 1. Cervicothoracic levoscoliosis with severe spondylosis. No acute osseous abnormality. Hip/Pelvis X-Ray 07/12/22 08:21 IMPRESSION: 1. Interval surgical change of the right hip without new acute osseous abnormality. Critical Care Time Critical Care Time Critical Care Time: No Discharge Plan Discharge Clinical Impression: Fall, Hematoma of occipital region of scalp Patient Disposition: [facility] Nursing Home/Asst Living Condition: Stable Instructions: Antibio
[2022-07-12 09:03] VITALS: BP 122/53; PULSE 64; RESP 17; O2SAT 99
[2022-07-12 09:38] VITALS: BP 125/52; PULSE 73; RESP 18; O2SAT 99
== END 2022-07-12 11:17 ==
PROVIDERS: Emergency Provider Emergency Medicine; PCP Internal Medicine
DX: S00.03XA Contusion of scalp, initial encounter (principal); W18.11XA Fall from or off toilet without subsequent striking against object, initial encounter; Z98.890 Other specified postprocedural states
CPT/HCPCS: 70450; 72125; 73502; 99284

== ENCOUNTER 2023-01-07 11:48 | Outpatient (CLI) | payer MEDICARE, BC, SELFPAY ==
--- NOTE | ~2023-01-07 | MMUS_ITS ---
EXAMINATION: MM diagnostic sunny BI w joyce, US breast RT limited HISTORY: Lateral right breast pain, lump TECHNIQUE: Bilateral ML, MLO and CC 3-D tomosynthesis images were performed and synthetic 2-D images were generated. CAD analysis was submitted and interpreted. High resolution targeted outer right [address]ena st ultrasound examination was performed. COMPARISON: None BREAST PARENCHYMAL COMPOSITION: The breasts are heterogeneously dense, which may obscure small masses . FINDINGS: MAMMOGRAPHIC FINDINGS: There is an approximately 9 mm irregular mass with radiating spicules in the anterior outer mid right breast. No other suspicious mass or architectural distortion is evident. Occasional benign calcifications. ULTRASOUND: 9:00 3 cm from nipple: There is an irregular hypoechoic approximately 7.5 x 9 x 11 mm mass. With some posterior shadowing, highly suggestive of malignancy. IMPRESSION: 1. Approximately 11 mm irregular spiculated mass with posterior shadowing at 9:00 3 cm from nipple, h ighly suggestive of malignancy 2. Ultrasound-guided biopsy is recommended BI-RADS category 5, highly suggestive of malignancy. Reviewed, dictated and finalized at location A. IMPRESSION: 1. Approximately 11 mm irregular spiculated mass with posterior shadowing at 9: 00 3 cm from nipple, highly suggestive of malignancy 2. Ultrasound-guided biopsy is recommended BI-RADS category 5, highly suggestive of malignancy.
== END 2023-01-07 11:49 | disposition home or self-care (01) ==
PROVIDERS: PCP Family Medicine
DX: N64.4 Mastodynia (principal); R92.8 Other abnormal and inconclusive findings on diagnostic imaging of breast
CPT/HCPCS: 76642; 77062; 77066; G0279

== ENCOUNTER 2023-01-14 10:09 | Outpatient (CLI) | payer MEDICARE, BC, SELFPAY ==
--- NOTE | ~2023-01-14 | MMUS_ITS ---
US breast biopsy RT w image, MM post biopsy invasive RT EXAMINATION: US GUIDED NEEDLE BIOPSY WITH VAC UUM ASSISTANCE DATE: 01/14/2023 11:47 CDT INDICATION: Left breast mass seen on prior examination. Ultrasound-guided core biopsy is requested t o evaluate for malignancy. TECHNIQUE AND FINDINGS: The risks and potential benefits of the procedure were discussed with the patient, and written inform ed consent was obtained. After sterile preparation of the breast, 1% lidocaine was utilized for loca l anesthesia. 1% lidocaine with epinephrine was used for deep anesthesia. A 10G vacuum-assisted biopsy gun needle was advanced through to the outer edge of the region of inter est from a medial approach utilizing sonographic guidance. A total of 5 tissue core samples were obt ained through the lesion. An Inrad tissue marker clip was then placed at the biopsy site. Hemostasis was achieved. The patient tolerated procedure well and there was no evidence of immediate complication. The patien t was given verbal instructions partly is from the department. Right breast mammograms to document t issue marker clip placement. The tissue samples were submitted to surgical pathology for histologic a nalysis. IMPRESSION: 1. Successful ultrasound-guided vacuum-assisted biopsy of right breast mass with tissue marker place ment. Please refer to pathology report for histologic analysis. Reviewed, dictated and finalized at location A. IMPRESSION: 1. Successful ultrasound-guided vacuum-assisted biopsy of right breast mass wi th tissue marker placement. Please refer to pathology report for histologic kindra lysis.
== END 2023-01-14 10:10 | disposition home or self-care (01) ==
PROVIDERS: PCP Family Medicine; Visit Provider Nurse Practitioner Family
DX: R92.8 Other abnormal and inconclusive findings on diagnostic imaging of breast (principal)
CPT/HCPCS: 19083; 88305; 88360; A4648

== ENCOUNTER 2023-01-30 14:16 | Outpatient (CLI) | payer MEDICARE, BC, SELFPAY ==
[2023-01-30 14:31] LABS: Basophils Absolute Auto 0.1 K/mm3 (0.0-0.1); Basophils Percent Auto 0.7 % (0.2-1.2); Eosinophils Absolute Auto 0.2 K/mm3 (0-0.3); Hematocrit 39.4 % (37.0-47.0); Hemoglobin 12.8 g/dL (12.0-15.0); Immature Granulocyte Absolute 0.02 K/mm3 (0.00-0.031); Immature Granulocyte Percent A 0.3 % (0-0.5); Lymphocytes Absolute Auto 1.79 K/mm3 (0.9-3.2); Lymphocytes Percent Auto 26.7 % (18.3-44.2); Mean Corpuscular HGB Conc 32.5 g/dl (32-36); Mean Corpuscular Hemoglobin 29.8 pg (26-34); Mean Corpuscular Volume 91.6 fl (80-100); Mean Platelet Volume 8.9 fl (7.4-10.4); Monocytes Absolute Auto 0.6 K/mm3 (0.1-0.6); Monocytes Percent Auto 8.7 % (2.6-8.5); Neutrophils Absolute Auto 4.1 K/mm3 (1.3-6.7); Neutrophils Percent Auto 60.6 % (45.5-73.1); Platelet Count Result 262 k/mm3 (150-375); Red Cell Distribution Width 13.7 % (11.5-14.5); White Blood Count 6.7 K/mm3 (4.5-10.0)
[2023-01-30 16:52] LABS: Alanine Aminotransferase 19 U/L (6-35); Albumin Level 4.3 g/dL (3.5-5.1); Alkaline Phosphatase 77 U/L (38-126); Anion Gap 7 mmol/L (8-16); Aspartate Amino Transferase 27 U/L (14-36); Bilirubin,Total 0.6 mg/dL (0.2-1.3); Blood Urea Nitrogen 16 mg/dL (7-17); Calcium 9.6 mg/dL (8.4-10.2); Carbon Dioxide 29 mmol/L (22-30); Chloride 100 mmol/L (98-107); Estimated Glomerular Filt Rate > 60; Glucose 90 mg/dL (65-110); Potassium 4.1 mmol/L (3.4-5.0); Sodium 136 mmol/L (137-145)
[2023-02-03 04:11] LABS: CA 15-3 26 U/mL (<32)
== END 2023-01-30 14:17 | disposition home or self-care (01) ==
LOC: ANHLAB 14:17
PROVIDERS: PCP Family Medicine; Visit Provider Internal Medicine Hematology & Oncology
DX: C50.411 Malignant neoplasm of upper-outer quadrant of right female breast (principal); Z17.0 Estrogen receptor positive status [ER+]
CPT/HCPCS: 36415; 80053; 85025; 86300

== ENCOUNTER 2023-02-13 10:47 | Outpatient (CLI) | payer MEDICARE, BC, SELFPAY ==
--- NOTE | ~2023-02-13 | MMUS_ITS ---
EXAMINATION: US_MAGSEEDRT_US, MM post biopsy invasive RT INDICATION: Right breast cancer TECHNIQUE: The procedure for a ultrasound -guided needle localization was discussed with the patient. Risks discussed included bleeding and infection. The patient verbalized understanding and agreed to proceed. The time out was performed to verify the patient's name, date of , and site of procedure. The sk in of the right breast was prepared in usual fashion. Utilizing ultrasound guidance, the needle was a dvanced into the known cancer of the right breast. Confirmation of Magseed position was achieved with ultrasound and subsequent mediolateral and craniocaudal mammogram. The patient tolerated procedure w ithout immediate complication. FINDINGS: Ultrasound and mammographic images demonstrate deployment of the Magseed device at the infe rolateral margin of the biopsy-proven right breast cancer. IMPRESSION: 1. Successful ultrasound-guided right breast Magseed localization. Reviewed, dictated and finalized at location A. IMPRESSION: 1. Successful ultrasound-guided right breast Magseed localization.
== END 2023-02-13 10:48 | disposition home or self-care (01) ==
PROVIDERS: PCP Family Medicine; Visit Provider Surgery
DX: C50.911 Malignant neoplasm of unspecified site of right female breast (principal)
CPT/HCPCS: 19285; A4648

== ENCOUNTER 2023-02-21 01:21 | Day surgery (SDC) | payer MEDICARE, BC, SELFPAY ==
--- NOTE | 2023-02-11 15:07 | PC.NURSE ---
Report to the Outpatient Waiting Room, entrance under the green pavilion located off [facility], at time __1000 on date __02/21/23 . Planned Procedure Time: _1200 . Time changes happen often and if your time is changed the preop area will call you the afternoon before. - You and your visitor will be asked to self-screen and do not enter if you have any COVID symptoms. - A mask is optional within the hospital at this time. Patients may have clear liquids (water, carbonated beverages, clear teas, apple juice) until 3 hours prior to surgery with a maximum of 20 ounces. - No food from midnight until time of surgery - Infants may have breast milk until 4 hours before surgery, infant formula 6 hours prior to surgery. - Children will be allowed to drink immediately following surgery. If applicable, please bring a bottle or sippy cup to assist with drinking. Juice, water, soda, and popsicles are readily available. For infants on formula, please bring formula the day of surgery. Pacifiers are allowed. Take the following medications with a SIP of water the morning of surgery: NONE DO NOT STOP ANY OF YOUR OTHER PRESCRIPTION MEDICATIONS PRIOR TO SURGERY ?EXCEPT THE FOLLOWING Medications to discontinue per physician ____ALL VITAMINS/SUPPLEMENTS 3 DAYS PRE OP.LAST DOSE 02/17/23 HIBICLENS SHOWER MORNING OF SURGERY Please no make-up, nail upper sorbian, hairspray, perfume, deodorant, or body powder the day of surgery. No jewelry (including any body piercings) or valuables the day of surgery, leave them at home. Please take a shower or bath the night before, or the morning of, surgery with an antibacterial soap. Wear comfortable, loose fitting clothing. Children are encouraged to wear pajamas. - Jewelry must be removed prior to entering the operating room. Rings and piercings that are not removed may be cut off. - The hospital will not accept responsibility for valuables. - Please leave all valuables, including medications, at home the day of surgery. If you are going home after surgery, a licensed maintenance truck driver must drive you home. - NO public transportation without another adult if you receive anesthesia. - We recommend that an adult stay with you for 24 hours following discharge. - We also recommend that you do not drive, make important decision, drink alcoholic beverages, or take any drugs that were not prescribed by your health care provider for at least 24 hours after your discharge time. For Pediatric surgeries, we recommend two adults accompany the child home. Follow any additional instructions given to you from your surgeon. If you or anyone in your household have experienced Covid symptoms in the past week, please notify your surgeon or the nurse liaison at the phone number below for possible testing. Telephone instructions given to __PT'S DAUGHTER AIDEE AND FAXED TO [facility] 02/11/23 @ 1536 and asked if any additional questions and then verbalized understanding. Patient advised to call surgeon office or pre surgery nurse liaison [phone] if any additional questions.
[2023-02-11 15:18] VITALS: BMI 17.7
--- NOTE | 2023-02-20 13:38 | WPDANESEPPF ---
Anes - Initial Pre Proc Eval Procedure: Operation Date: 02/21/23 12:00 Proposed Procedures p Right Breast Lumpectomy - Mirian Dahl MD Date/Time: 02/20/23 13:38 Surgeon: Mirian Dahl MD Pre Op Diagnosis: irreg mass right breast Patient Data Age: 87 Gender: F Height: 1.68 m Weight: 49.9 kg Allergies Allergy/AdvReac Type Severity Reaction Status Date / Time No Known Allergies Allergy Verified 02/21/23 10:02 Home Medications Medication Instructions Recorded Confirmed Type ergocalciferol (vitamin D2) 1,250 50,000 unit PO WEEKLY #8 caps 07/10/22 02/11/23 Rx mcg (50,000 unit) capsule (Vitamin D2) sennosides 8.6 mg-docusate sodium 2 tab-cap PO PRN PRN Constipation 02/05/23 02/11/23 History 50 mg tablet (Senokot-S) calcium carbonate 500 mg calcium 500 mg PO DAILY 02/11/23 02/11/23 History (1,250 mg) tablet multivitamin with minerals 1 cap PO DAILY 02/11/23 02/11/23 History Patient hx anesthesia problems: none Family hx anesthesia problems: none Results Review: All pre-operative results and documents have been reviewed as part of the pre-operative evaluation. [facility] Past Medical History Medical History Anemia Osteoporosis Surgical History Surgical History History of appendectomy History of left hip replacement Family History Family History Father Cancer Sibling Cancer Other Unknown family medical history Social History Social History Smoking status: Never smoker Alcohol intake: current Alcohol use details: glass of wine once in a while Substance use: never Substance use type: does not use Lack of Transportation: No Lack of Food: Never True Current Housing: I Have Housing Concerned About Future Housing: No Difficulty Paying Gas/Electric Bills: No Difficulty Paying for Meds: No Currently Unemployed: No Education: High School Diploma/GED Difficulty w/ Childcare or Family Care: No Living arrangements: long-term Occupation/Education: retired Gender identity (if verbalized by the patient): Female Spiritual care concerns: No Anes - Eval Final PreProcedure Day of Procedure 02/20/23 13:38 Patient weight: thin Heart: regular rate and rhythm Lungs: clear to auscultation Airway: Mallampati scale class II Neurological: alert and oriented Last oral intake: >/= 8 hours ASA classification: III Emergent: no Anesthetic plan: proceed Anesthesia type and monitoring: general LMA and standard monitoring Results Review: All pre-operative results and documents have been reviewed as part of the pre-operative evaluation. Informed Consent: The patient's anesthetic plan and its attendant risks and benefits were discussed with the patient/family/POA. Questions were solicited and answers provided to the satisfaction of the patient/family/POA.
--- NOTE | ~2023-02-21 | MM_ITS ---
MM surgical specimen RT DATE: 02/21/2023 13:39 INDICATION: Post lumpectomy; mag seed verification TECHNIQUE: Single noncompression digital mammographic exposure of surgical soft tissue specimen COMPARISON: February 13, 2023 right post Mag seed placement mammogram FINDINGS: An approximately 2 cm mass is present, with biopsy marker and mag seed. IMPRESSION: Successful surgical excision of breast mass with biopsy marker and mag seed Reviewed, dictated and finalized at Location A. Reviewed, dictated and finalized at location A.
[2023-02-21] MEDS: ACETAMINOPHEN 500 MG TABLET 1000 MG PO (10:04)
[2023-02-21 10:39] VITALS: BP 148/70; PULSE 71; RESP 16; TEMP 36.4; O2SAT 99
[2023-02-21] MEDS: LACTATED RINGERS 1,000 ML 30 ML IV CONT (10:48)
[2023-02-21] MEDS: KETOROLAC 15 MG/ML VIAL (*BKC) IV PUSH (10:48)
--- NOTE | 2023-02-21 11:14 | WPDHPUPDATE1 ---
History and Physical Update Update Date/Time: 02/21/23 11:14 History and Physical has been reviewed, including an updated exam of the patient. There are NO changes in the patient's condition. Risks, benefits, and alternatives have been discussed and questions answered. Patient agrees to proceed with procedure.
--- NOTE | 2023-02-21 11:39 | WPDANESEPPF ---
Anes - Initial Pre Proc Eval Procedure: Operation Date: 02/21/23 12:00 Proposed Procedures p Right Breast Lumpectomy - Mirian Dahl MD Date/Time: 02/21/23 11:39 Surgeon: Mirian Dahl MD Pre Op Diagnosis: irreg mass right breast Patient Data Age: 87 Gender: F Height: 1.68 m Weight: 51 kg Last Vital Signs Temp 36.4 C 02/21/23 10:39 Pulse 71 02/21/23 10:39 Resp 16 02/21/23 10:39 BP 148/70 H 02/21/23 10:39 Pulse Ox 99 02/21/23 10:39 O2 Del Method Room Air 02/21/23 10:39 Allergies Allergy/AdvReac Type Severity Reaction Status Date / Time No Known Allergies Allergy Verified 02/21/23 10:02 Home Medications Medication Instructions Recorded Confirmed Type ergocalciferol (vitamin D2) 1,250 50,000 unit PO WEEKLY #8 caps 07/10/22 02/11/23 Rx mcg (50,000 unit) capsule (Vitamin D2) sennosides 8.6 mg-docusate sodium 2 tab-cap PO PRN PRN Constipation 02/05/23 02/11/23 History 50 mg tablet (Senokot-S) calcium carbonate 500 mg calcium 500 mg PO DAILY 02/11/23 02/11/23 History (1,250 mg) tablet multivitamin with minerals 1 cap PO DAILY 02/11/23 02/11/23 History Patient hx anesthesia problems: none Family hx anesthesia problems: none Results Review: All pre-operative results and documents have been reviewed as part of the pre-operative evaluation. [facility] Past Medical History Medical History Anemia Osteoporosis Surgical History Surgical History History of appendectomy History of left hip replacement Family History Family History Father Cancer Sibling Cancer Other Unknown family medical history Social History Social History Smoking status: Never smoker Alcohol intake: current Alcohol use details: glass of wine once in a while Substance use: never Substance use type: does not use Lack of Transportation: No Lack of Food: Never True Current Housing: I Have Housing Concerned About Future Housing: No Difficulty Paying Gas/Electric Bills: No Difficulty Paying for Meds: No Currently Unemployed: No Education: High School Diploma/GED Difficulty w/ Childcare or Family Care: No Living arrangements: snf Occupation/Education: retired Gender identity (if verbalized by the patient): Female Spiritual care concerns: No Anes - Eval Final PreProcedure Day of Procedure 02/21/23 11:39 Patient weight: normal Heart: regular rate and rhythm Lungs: clear to auscultation Airway: Mallampati scale class II Last oral intake: >/= 8 hours ASA classification: II Emergent: no Anesthetic plan: proceed Anesthesia type and monitoring: general LMA and standard monitoring Results Review: All pre-operative results and documents have been reviewed as part of the pre-operative evaluation. Informed Consent: The patient's anesthetic plan and its attendant risks and benefits were discussed with the patient/family/POA. Questions were solicited and answers provided to the satisfaction of the patient/family/POA.
[2023-02-21] MEDS: ceFAZolin 2 GM/D5W 50 ML 2 GM/50 ML BAG IVPB (12:20)
[2023-02-21] MEDS: BUPIVACAINE/EPINEPHRINE 0.25% 50 ML VIAL 30 ML INFILTRATE (12:55)
--- NOTE | 2023-02-21 13:32 | SUR.OPER ---
Addendum entered by Toya Gonzalez RN 02/21/23 13:57: specimen excised at 1313 Original Note: specimen given to [facility] at 1225. Specimen to radiology then sent to pathology, fresh at 1330
--- NOTE | 2023-02-21 13:50 | W.PM.PROC2 ---
Procedure Note - Detailed Date of Procedure 02/21/23 Pre-op Diagnosis irreg mass right breast Post-op Diagnosis Same Procedure Performed Right Lumpectomy with Magseed localization under US guidance Surgeon Mirian Dahl MD Anesthesia General Description of Procedure Patient was identified in the pre-operative area and brought to the OR suite. She underwent tumor localization previously by IR with magseed placement. She was laid supine in the operating table and sequential compression devices were applied. General anesthesia was induced without difficulties. The right chest was prepped and draped in a sterile fashion. The magnetic probe was used to identify the area where the magseed was placed and an incision was made overlying this area. Dissection was carried down through the subcutaneous tissue into the breast tissue. The tumor was identified using probe, and a rim of normal breast tissue was excised along with the tumor as our lumpectomy specimen. Once the specimen was completely excised, it was oriented using surgical pain according to steward/stewardess railroad dining car instructions. The specimen was sent to Radiology for radiographic confirmation of Tumor, biopsy marker and magseed within the specimen. Once the radiographic confirmation was received, the wound was irrigated with saline and hemostasis was assured. The deep dermal layer was approximated using interrupected 3-0 vicryl followed by 4-0 monocryl for the skin. Dermabond was applied followed by a surgical bra. Patient was awoken from anesthesia and taken to the recovery area in stable condition. All needles, instruments and sponge counts were correct as reported by the operating room staff. Patient tolerated the procedure well with no immediate complications. Estimated Blood Loss 10 Pathology Yes Complications No immediate complications Condition Stable Disposition PACU [facility] Billing Surgery - Charge Forward: Surgery Billing
[2023-02-21 13:55] VITALS: BP 127/64; PULSE 77; RESP 16; O2SAT 98
[2023-02-21 14:25] VITALS: BP 145/57; PULSE 84; RESP 14
[2023-02-21 14:55] VITALS: BP 124/70; PULSE 77; RESP 15
[2023-02-21 15:10] VITALS: BP 129/73; PULSE 63; RESP 14
== END 2023-02-21 15:15 | disposition home or self-care (01) ==
PROVIDERS: PCP Family Medicine; Visit Provider Surgery
PROC: (CPT 19307; principal; 2023-02-21 12:00)
DX: C50.811 Malignant neoplasm of overlapping sites of right female breast (principal); Z17.0 Estrogen receptor positive status [ER+]; M81.0 Age-related osteoporosis without current pathological fracture
CPT/HCPCS: 19301; 76098; 88307; A9270; J0690; J1885; J2704; J3010; J7120

== ENCOUNTER 2023-03-22 10:38 | Outpatient (CLI) | payer MEDICARE, BC, SELFPAY ==
--- NOTE | ~2023-03-22 | DEXA_ITS ---
Bone Density Report Name: LAVONNE CLEMENT Age: 87 Sex: Female Ethnicity: White Date of : 1935 Indication: postmenopausal; screening for osteoporosis; height loss; prior fracture; cancer; Referring Provider: ANAND SIBLEY Study: Bone densitometry was performed. Exam Date: March 22, 2023 Accession number: [id number] Bone Density: Region BMD T-score Z-score Classification AP Spine(L1, L3, L4) 0.731 -2.9 0.0 Osteoporosis World Health Organization criteria for BMD impression classify patients as: Normal (T-score at or above -1.0), Osteopenia (T-score between -1.0 and -2.5), or Osteoporosis (T-score at or below -2.5). Clinical Information Provided by Patient: Have had a previous hip or vertebral fracture Has had a low trauma fracture Has used the following medications: Vitamin D, Calcium Has the following medical conditions: Cancer Patient maximum height was 67 Menopause Age: 55 Does not regularly consume dairy products Drinks caffeinated beverages Onset of menses at age 14 Number of children 1 Impression: The patient has established osteoporosis, based on the Total Spine T-score and the existence of a prior fracture. The patient has risk factors, including: previous fracture. Discussion: HIGH RISK OF FRACTURE. BONE DENSITY IS UNDESIRABLY LOW AT ONE OR MORE SKELETAL SITES, CONSISTENT WITH POSTMENOPAUSAL OSTEOPOROSIS. This patient's lowest T-score, in a patient who has previously fractured, meets the World Health Organization's (WHO) criteria for severe osteoporosis. In untreated patients, the risk of osteoporotic fracture increases approximately two-fold for each 1.0 SD decrease in T-score. Low bone density is not the only risk factor for fracture; also consider factors such as patient's age, frailty or poor health, risk of falling, risk of injury, previous osteoporotic fracture, family history of osteoporosis, cigarette smoking, low body weight, etc. Not everyone with low bone mineral density has osteoporosis; osteomalacia and other metabolic bone disorders should also be considered. Patients who have osteoporosis should be evaluated for specific diseases and conditions (secondary causes) that may cause or contribute to bone loss. The [place] Association of Clinical Endocrinologists (AACE) and National Osteoporosis Foundation (NOF) recommend pharmacologic intervention for all postmenopausal women with a previous hip or vertebral fracture and a T-score in this range. The patient should follow a healthful lifestyle (good nutrition with adequate calcium and vitamin D, and appropriate weight-bearing exercise). Follow-Up: Consider a repeat BMD and Vertebral Fracture Assessment (VFA) exam in 2 years or sooner if medically necessary, to reassess this patient's status. Reported by: Dr. Vance Burton on 03/22/2023 11:24:00 AM. Reviewed, dictated and finalized at location A.
== END 2023-03-22 10:39 | disposition home or self-care (01) ==
LOC: CHSIMG 10:41
PROVIDERS: PCP Family Medicine; Visit Provider Internal Medicine Hematology & Oncology
DX: Z78.0 Asymptomatic menopausal state (principal); M81.0 Age-related osteoporosis without current pathological fracture
CPT/HCPCS: 77080

== ENCOUNTER 2023-10-23 10:35 | Outpatient (CLI) | payer MEDICARE, BC, SELFPAY ==
--- NOTE | ~2023-10-23 | MMUS_ITS ---
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 CAD analysis was submitted and interpreted. High resolution bilateral complete breast ultrasound examination including all 4 quadrants and subareolar areas was performed. COMPARISON: 01/15/2020 3V right breast biopsy 01/07/2023 diagnostic right mammogram and limited right breast ultrasound BREAST PARENCHYMAL COMPOSITION: The breasts are heterogeneously dense, which may obscure small masses . FINDINGS: MAMMOGRAPHIC FINDINGS: Interval resolution of mass and architectural distortion in the outer mid right breast since 3. No suspicious mass or architectural distortion, malignant calcification, skin thickening or retractio n or significant new or developing density is detected. ULTRASOUND: In the right breast at 9:00 from the nipple to 4 cm from the nipple there is an irregular complex mix ed sonolucency and soft tissue echogenicity including some fatty tissue, which likely represents post operative change from partial mastectomy. No suspicious mass or shadowing is noted otherwise. IMPRESSION: 1. Probable postoperative change at 9:00 2. 6 month follow-up diagnostic right mammogram and right breast ultrasound examination are recommend ed BI-RADS category 3, probably benign findings. Reviewed, dictated and finalized at location A. T GRADER OPERATOR IMPRESSION: 1. Probable postoperative change at 9:00 2. 6 month follow-up diagnostic right mammogram and right breast ultrasound exa mination are recommended BI-RADS category 3, probably benign findings.
== END 2023-10-23 10:36 | disposition home or self-care (01) ==
LOC: ANHIMG 10:39
PROVIDERS: Visit Provider Surgery
DX: C50.911 Malignant neoplasm of unspecified site of right female breast (principal); Z17.0 Estrogen receptor positive status [ER+]; R92.8 Other abnormal and inconclusive findings on diagnostic imaging of breast
CPT/HCPCS: 36415; 76641; 77062; 77066; 80053; 85025; 86300; G0279

== ENCOUNTER 2024-05-29 11:01 | Outpatient (CLI) | payer MEDICARE, BC, SELFPAY ==
--- NOTE | ~2024-05-29 | MMUS_ITS ---
EXAMINATION: MM diagnostic sunny RT w joyce, US breast RT complete HISTORY: History of right breast cancer status post lumpectomy TECHNIQUE: Additional 3-D tomosynthesis images of the right breast were performed and synthetic 2-D i mages were generated. CAD analysis was submitted and interpreted. High resolution complete right [address] st ultrasound was performed. COMPARISON: Comparison to multiple prior studies sequentially, with oldest reviewed study dated 01/07. BREAST PARENCHYMAL COMPOSITION: Dense: The breasts are heterogeneously dense, which may obscure small masses FINDINGS: MAMMOGRAPHIC FINDINGS: There is distortion in the upper outer quadrant of the right breast, consistent with previous lumpect genevieve. No discrete mass or suspicious calcifications are identified. ULTRASOUND: Complete US of all 4 quadrants of the right breast and retroareolar region was reviewed. At 9:00 ther e is heterogeneous soft tissue, consistent with distortion from previous lumpectomy. No discrete mass identified. No abnormal cyst. IMPRESSION: 1. No evidence for malignancy in the right breast. Postoperative findings. 2. Routine yearly screening mammogram and regular clinical breast examination are recommended. BI-RADS Category 2: Benign finding(s). Reviewed, dictated and finalized at location B. IMPRESSION: 1. No evidence for malignancy in the right breast. Postoperative findings. 2. Routine yearly screening mammogram and regular clinical breast examination a re recommended. BI-RADS Category 2: Benign finding(s).
== END 2024-05-29 11:02 | disposition home or self-care (01) ==
LOC: ANHIMG 11:03
PROVIDERS: Visit Provider Internal Medicine Hematology & Oncology
DX: C50.411 Malignant neoplasm of upper-outer quadrant of right female breast (principal); Z17.0 Estrogen receptor positive status [ER+]; R92.8 Other abnormal and inconclusive findings on diagnostic imaging of breast
CPT/HCPCS: 76641; 77061; 77065; G0279

== ENCOUNTER 2024-09-03 15:36 | Emergency (ER) | payer MEDICARE, BC, SELFPAY ==
--- NOTE | ~2024-09-03 | CT_ITS ---
EXAMINATION: CT brain wo con DATE: 09/03/2024 16:09 INDICATION: Head injury. TECHNIQUE: Computed tomography (CT) of the head was performed without intravenous contrast. The mA wa s adjusted according to patient size. Iterative reconstruction technique was employed. The dose-lengt h product was 605.33 mGy-cm. COMPARISON: Head CT 07/12/2022 FINDINGS: There are scattered areas of low attenuation in the cerebral white matter, which is within normal limits for the patient's age. There is no intracranial hemorrhage, acute infarction, or abnor mal intracranial mass lesion. The ventricles are normal in size. There are likely changes of ocular l ens replacement surgeries. There is mild mucosal thickening in the ethmoid sinuses. The mastoid air c ells are normal. IMPRESSION: 1. Normal aging brain. Reviewed, dictated and finalized at location A. M COACH IMPRESSION: 1. Normal aging brain.
[2024-09-03 15:36] VITALS: BP 153/74; PULSE 89; RESP 18; TEMP 36.4; O2SAT 93
--- NOTE | 2024-09-03 16:18 | ED.HEATRA ---
HPI - Head Injury General Chief complaint: Head Injury Stated complaint: fall Time Seen by Provider: 09/03/24 15:49 History of Present Illness HPI Narrative: Patient is an 89-year-old female with history of dementia who presents ER after having a fall. She fell forward out of her chair striking her head on the ground. No LOC. She does take a blood thinner. No additional complaints. Related Data Home Medications Medication Instructions Recorded Confirmed sennosides 8.6 mg-docusate sodium 2 tab-cap PO PRN PRN Constipation 02/05/23 05/29/24 50 mg tablet (Senokot-S) calcium carbonate 500 mg PO DAILY 02/11/23 05/29/24 multivitamin with minerals 1 cap PO DAILY 02/11/23 05/29/24 Allergies Allergy/AdvReac Type Severity Reaction Status Date / Time No Known Allergies Allergy Verified 05/29/24 12:18 Review of Systems Review of Systems: ROS unobtainable: Yes unobtainable due to mental status PMFSH Past Medical History Medical History Anemia Osteoporosis Surgical History Surgical History History of appendectomy History of left hip replacement Family History Family History Father Cancer Sibling Cancer Other Unknown family medical history Social History Social History Smoking status: Never smoker Alcohol intake: current Alcohol use details: glass of wine once in a while Substance use: never Substance use type: does not use Lack of Transportation: No Lack of Food: Never True Current Housing: I Have Housing Concerned About Future Housing: No Difficulty Paying Gas/Electric Bills: No Difficulty Paying for Meds: No Currently Unemployed: No Education: High School Diploma/GED Difficulty w/ Childcare or Family Care: No Living arrangements: skilled nursing Occupation/Education: retired Gender identity (if verbalized by the patient): Female Spiritual care concerns: No Exam Narrative: GENERAL: Well-appearing, well-nourished, and in no acute distress. HEAD: Normocephalic, Contusion of the right forehead. EYES: PERRL and EOMI. ENT: Mucous membranes moist. NECK: Supple. No midline tenderness with full range of motion. CHEST: Clear to auscultation. No respiratory distress. HEART: Regular rate and rhythm. Normal peripheral pulses. EXTREMITIES: Normal range of motion. No edema. NEURO: Alert and oriented x2. PSYCH: Normal mood and affect. Course Course Emergency Course: CT without intracranial injury. Discharge. Vital Signs Vital signs: Vital Signs Temperature 97.6 F 09/03/24 15:36 Pulse Rate 89 09/03/24 15:36 Respiratory Rate 18 09/03/24 15:36 Blood Pressure 153/74 H 09/03/24 15:36 Pulse Oximetry 93 09/03/24 15:36 Oxygen Delivery Room Air 09/03/24 15:36 Temperature 97.6 F 09/03/24 15:36 Pulse Rate 89 09/03/24 15:36 Respiratory Rate 18 09/03/24 15:36 Blood Pressure 153/74 H 09/03/24 15:36 Pulse Oximetry 93 09/03/24 15:36 Oxygen Delivery Room Air 09/03/24 15:36 MDM - Head Injury Imaging Data Radiologist's impression: ITS Impressions Head CT 09/03/24 16:12 IMPRESSION: 1. Normal aging brain. Discharge Plan Discharge Clinical Impression: Contusion of forehead Patient Disposition: Home, Self-Care Condition: Stable Instructions: Contusion in Adults (ED) Additional Instructions: Return ER if you have fever 100.4? F, you cannot keep down food water you lose consciousness, or have additional concerns. Prescriptions: No Action sennosides-docusate sodium [Senokot-S] 8.6-50 mg tablet 2 tab-cap PO PRN PRN (Reason: Constipation) ergocalciferol (vitamin D2) [Vitamin D2] 1,250 mcg (50,000 unit) Capsule 50,000 unit PO WEEKLY Qty: 8 0RF calcium carbonate 500 mg calcium (1,250 mg) Tablet 500 mg PO DAILY multivitamin with minerals Capsule 1 cap PO DAILY Follow-up/Referrals: Prince Campuzano MD [Primary Care Provider] - 1 Week
--- NOTE | 2024-09-03 17:50 | PC.NURSE ---
ERIN arrives at 1740 to take pt back to [facility]. report was given to Roosevelt at 1650 and all questions answered.
[2024-09-03 17:51] VITALS: BP 144/83; PULSE 84; RESP 15; TEMP 36.7; O2SAT 95
== END 2024-09-03 17:50 ==
PROVIDERS: Emergency Provider Emergency Medicine; PCP Family Medicine
DX: S00.83XA Contusion of other part of head, initial encounter (principal); M81.0 Age-related osteoporosis without current pathological fracture; Z86.2 Personal history of diseases of the blood and blood-forming organs and certain disorders involving the immune mechanism; Z96.642 Presence of left artificial hip joint; W07.XXXA Fall from chair, initial encounter
CPT/HCPCS: 70450; 99284